=== PATIENT | female | born 1945 | race Caucasian/White ===

== ENCOUNTER → 2018-03-20 10:03 | Outpatient (CLI) | payer MEDICARE, OTHER, SELFPAY ==
--- NOTE | 2018-03-20 | DI.MG.S_ITS ---
BILATERAL DIGITAL SCREENING MAMMOGRAM 3D/2D WITH CAD: 03/20/2018 CLINICAL: Routine screening. Comparison is made to exams dated: 03/19/2017 mammogram, 03/16/2016 mammogram, and 03/07/2015 mammogram - [facility]. The tissue of both breasts is predominantly fatty. Current study was also evaluated with a Computer Aided Detection (CAD) system. No significant masses, calcifications, or other findings are seen in either breast. There has been no significant interval change. IMPRESSION: NEGATIVE There is no mammographic evidence of malignancy. A 1 year screening mammogram is recommended. This exam was interpreted at Station ID: [id number]. NOTE: For mammograms, a report in lay terms will be sent to the patient. Approximately 15% of breast malignancies will not be visualized mammographically. In the management of a palpable breast mass, a negative mammogram must not discourage biopsy of a clinically suspicious lesion. Electronically Signed By: Aline goldsmith/arvin:03/20/2018 12:25:24 letter sent: Normal Exam ACR BI-RADS Category 1: Negative 3341F
== END ==
PROVIDERS: Family Provider Internal Medicine; PCP Internal Medicine; Visit Provider Internal Medicine
DX: Z12.31 Encounter for screening mammogram for malignant neoplasm of breast (principal)
CPT/HCPCS: 77063; 77067

== ENCOUNTER → 2018-07-03 09:13 | Outpatient (CLI) | payer MEDICARE, OTHER, SELFPAY ==
[2018-07-03 10:28] LABS: Alanine Aminotransferase 45 IU/L (9-52); Aspartate Aminotransferase 35 IU/L (14-36); Blood Urea Nitrogen 20 mg/dL (7-17); Calcium 9.3 mg/dL (8.4-10.2); Carbon Dioxide 29 mmol/L (22-32); Chloride 100 mmol/L (98-107); Cholesterol 168 mg/dL (140-199); Estimated Glomerular Filt Rate > 60.0 mL/min (>60); Glucose 110 mg/dL (80-110); HDL Cholesterol 44 mg/dL (40-60); HEMOLYSIS < 15 (0-50); LDL Cholesterol Calculated 96 mg/dL (<100); Potassium 4.5 mmol/L (3.4-5.1); Sodium 138 mmol/L (137-145); Triglycerides 141 mg/dL (35-150)
== END ==
PROVIDERS: PCP Internal Medicine; Visit Provider Internal Medicine
DX: I10 Essential (primary) hypertension (principal); E78.00 Pure hypercholesterolemia, unspecified
CPT/HCPCS: 36415; 80048; 80061; 84450; 84460

== ENCOUNTER → 2019-01-05 11:33 | Outpatient (CLI) | payer MEDICARE, OTHER, SELFPAY ==
[2019-01-05 12:21] LABS: Alanine Aminotransferase 50 IU/L (9-52); Aspartate Aminotransferase 36 IU/L (14-36); Blood Urea Nitrogen 15 mg/dL (7-17); Calcium 9.8 mg/dL (8.4-10.2); Carbon Dioxide 29 mmol/L (22-32); Chloride 102 mmol/L (98-107); Cholesterol 160 mg/dL (140-199); Estimated Glomerular Filt Rate > 60.0 mL/min (>60); Glucose 112 mg/dL (80-110); HDL Cholesterol 45 mg/dL (40-60); HEMOLYSIS < 15 (0-50); LDL Cholesterol Calculated 73 mg/dL (<100); Potassium 4.7 mmol/L (3.4-5.1); Sodium 141 mmol/L (137-145); Triglycerides 211 mg/dL (35-150)
== END ==
PROVIDERS: PCP Internal Medicine; Visit Provider Internal Medicine
DX: E78.00 Pure hypercholesterolemia, unspecified (principal); I10 Essential (primary) hypertension
CPT/HCPCS: 36415; 80048; 80061; 84450; 84460

== ENCOUNTER → 2019-03-25 08:29 | Outpatient (CLI) | payer MEDICARE, OTHER, SELFPAY ==
--- NOTE | 2019-03-25 | DI.MG.S_ITS ---
BILATERAL DIGITAL SCREENING MAMMOGRAM 3D/2D WITH CAD: 03/25/2019 CLINICAL: Routine screening. Comparison is made to exams dated: 03/20/2018 mammogram, 03/19/2017 mammogram, and 03/16/2016 mammogram - [facility]. There are scattered fibroglandular elements in both breasts. Current study was also evaluated with a Computer Aided Detection (CAD) system. No significant masses, calcifications, or other findings are seen in either breast. There has been no significant interval change. IMPRESSION: NEGATIVE There is no mammographic evidence of malignancy. A 1 year screening mammogram is recommended. This exam was interpreted at Station ID: [id number]. NOTE: For mammograms, a report in lay terms will be sent to the patient. Approximately 15% of breast malignancies will not be visualized mammographically. In the management of a palpable breast mass, a negative mammogram must not discourage biopsy of a clinically suspicious lesion. Electronically Signed By: Dae collins/arvin:03/25/2019 09:26:29 letter sent: Normal Exam ACR BI-RADS Category 1: Negative 3341F
== END ==
PROVIDERS: PCP Internal Medicine; Visit Provider Internal Medicine
DX: Z12.31 Encounter for screening mammogram for malignant neoplasm of breast (principal)
CPT/HCPCS: 77063; 77067

== ENCOUNTER → 2019-06-25 09:56 | Outpatient (CLI) | payer MEDICARE, OTHER, SELFPAY ==
[2019-06-25 11:17] LABS: Alanine Aminotransferase 39 IU/L (<35); Aspartate Aminotransferase 35 IU/L (14-36); Blood Urea Nitrogen 18 mg/dL (7-17); Calcium 9.5 mg/dL (8.4-10.2); Carbon Dioxide 27 mmol/L (22-32); Chloride 102 mmol/L (98-107); Cholesterol 173 mg/dL (140-199); Estimated Glomerular Filt Rate > 60.0 mL/min (>60); Glucose 106 mg/dL (80-110); HDL Cholesterol 49 mg/dL (40-60); HEMOLYSIS < 15 (0-50); LDL Cholesterol Calculated 90 mg/dL (<100); Potassium 4.7 mmol/L (3.4-5.1); Sodium 138 mmol/L (137-145); Triglycerides 172 mg/dL (35-150)
== END ==
PROVIDERS: PCP Internal Medicine; Referring Provider Internal Medicine; Visit Provider Internal Medicine
DX: E78.5 Hyperlipidemia, unspecified (principal); I10 Essential (primary) hypertension
CPT/HCPCS: 36415; 80048; 80061; 84450; 84460

== ENCOUNTER → 2020-02-10 10:30 | Outpatient (CLI) | payer MEDICARE, OTHER, SELFPAY ==
[2020-02-10 11:54] LABS: Alanine Aminotransferase 34 IU/L (<35); Albumin 4.2 g/dL (3.5-5.0); Albumin Globulin Ratio 1.4 (1.0-2.8); Alkaline Phosphatase 66 U/L (38-126); Aspartate Aminotransferase 40 IU/L (14-36); Bilirubin Total 0.9 mg/dL (0.2-1.3); Blood Urea Nitrogen 24 mg/dL (7-17); Calcium 9.2 mg/dL (8.4-10.2); Carbon Dioxide 26 mmol/L (22-32); Chloride 104 mmol/L (98-107); Cholesterol 146 mg/dL (140-199); Estimated Glomerular Filt Rate > 60.0 mL/min (>60); Glucose 101 mg/dL (80-110); HDL Cholesterol 37 mg/dL (40-60); HEMOLYSIS 38 (0-50); LDL Cholesterol Calculated 76 mg/dL (<100); Potassium 4.7 mmol/L (3.4-5.1); Sodium 138 mmol/L (137-145); Total Protein 7.2 g/dL (6.3-8.2); Triglycerides 166 mg/dL (35-150)
== END ==
PROVIDERS: PCP Internal Medicine; Referring Provider Internal Medicine; Visit Provider Internal Medicine
DX: I10 Essential (primary) hypertension (principal); E78.5 Hyperlipidemia, unspecified
CPT/HCPCS: 36415; 80053; 80061

== ENCOUNTER → 2020-03-24 16:19 | Outpatient (CLI) | payer MEDICARE, OTHER, SELFPAY | PROVIDERS: PCP Internal Medicine; Visit Provider Physician Assistant | DX: R30.0 Dysuria (principal) | CPT/HCPCS: 87077; 87086; 87186 ==

== ENCOUNTER → 2020-04-15 10:16 | Outpatient (CLI) | payer MEDICARE, OTHER, SELFPAY ==
--- NOTE | 2020-04-15 10:18 | DI.MG.S_ITS ---
BILATERAL DIGITAL SCREENING MAMMOGRAM 3D/2D WITH CAD: 04/15/2020 CLINICAL: Routine screening. Comparison is made to exams dated: 03/25/2019 mammogram, 03/20/2018 mammogram, 03/19/2017 mammogram, and 03/16/2016 mammogram - [facility]. There are scattered fibroglandular elements in both breasts. Current study was also evaluated with a Computer Aided Detection (CAD) system. No significant masses, calcifications, or other findings are seen in either breast. There has been no significant interval change. IMPRESSION: NEGATIVE There is no mammographic evidence of malignancy. A 1 year screening mammogram is recommended. This exam was interpreted at Station ID: [id number]. NOTE: For mammograms, a report in lay terms will be sent to the patient. Approximately 15% of breast malignancies will not be visualized mammographically. In the management of a palpable breast mass, a negative mammogram must not discourage biopsy of a clinically suspicious lesion. Electronically Signed By: Daniel cantu/arvin:04/19/2020 07:53:10 letter sent: Normal Exam ACR BI-RADS Category 1: Negative 3341F
== END ==
PROVIDERS: PCP Internal Medicine; Referring Provider Internal Medicine; Visit Provider Internal Medicine
DX: Z12.31 Encounter for screening mammogram for malignant neoplasm of breast (principal)
CPT/HCPCS: 77063; 77067

== ENCOUNTER → 2020-11-22 10:44 | Outpatient (CLI) | payer MEDICARE, OTHER, SELFPAY | PROVIDERS: PCP Internal Medicine; Referring Provider Internal Medicine; Visit Provider Internal Medicine | DX: M85.851 Other specified disorders of bone density and structure, right thigh (principal); Z78.0 Asymptomatic menopausal state | CPT/HCPCS: 77080 ==

== ENCOUNTER → 2021-02-17 09:59 | Outpatient (CLI) | payer MEDICARE, OTHER, SELFPAY ==
[2021-02-17 11:54] LABS: Alanine Aminotransferase 28 IU/L (<35); Albumin 4.3 g/dL (3.5-5.0); Albumin Globulin Ratio 1.7 (1.0-2.8); Alkaline Phosphatase 48 U/L (38-126); Aspartate Aminotransferase 30 IU/L (14-36); BUN Creatinine Ratio 28.4 (6-22); Bilirubin Total 0.9 mg/dL (0.2-1.3); Blood Urea Nitrogen 19 mg/dL (7-17); Calcium 9.3 mg/dL (8.4-10.2); Carbon Dioxide 33 mmol/L (22-32); Chloride 101 mmol/L (98-107); Cholesterol 143 mg/dL (140-199); Estimated Glomerular Filt Rate > 60.0 mL/min (>60); Globulin 2.6 g/dL (1.7-4.1); Glucose 107 mg/dL (80-110); HDL Cholesterol 51 mg/dL (40-60); HEMOLYSIS < 15 (0-50); LDL Cholesterol Calculated 61 mg/dL (<100); Potassium 4.4 mmol/L (3.4-5.1); Sodium 137 mmol/L (137-145); Total Protein 6.9 g/dL (6.3-8.2); Triglycerides 154 mg/dL (35-150)
== END ==
PROVIDERS: PCP Internal Medicine; Referring Provider Internal Medicine; Visit Provider Internal Medicine
DX: I10 Essential (primary) hypertension (principal); E78.5 Hyperlipidemia, unspecified
CPT/HCPCS: 36415; 80053; 80061

== ENCOUNTER → 2021-04-17 10:29 | Outpatient (CLI) | payer MEDICARE, OTHER, SELFPAY ==
--- NOTE | 2021-04-17 10:33 | DI.MG.S_ITS ---
BILATERAL DIGITAL SCREENING MAMMOGRAM 3D/2D WITH CAD: 04/17/2021 CLINICAL: Routine screening. Comparison is made to exams dated: 04/15/2020 mammogram, 03/25/2019 mammogram, and 03/20/2018 mammogram - [facility]. There are scattered fibroglandular elements in both breasts. Current study was also evaluated with a Computer Aided Detection (CAD) system. No significant masses, calcifications, or other findings are seen in either breast. There has been no significant interval change. IMPRESSION: NEGATIVE There is no mammographic evidence of malignancy. A 1 year screening mammogram is recommended. This exam was interpreted at Station ID: [id number]. NOTE: For mammograms, a report in lay terms will be sent to the patient. Approximately 15% of breast malignancies will not be visualized mammographically. In the management of a palpable breast mass, a negative mammogram must not discourage biopsy of a clinically suspicious lesion. Electronically Signed By: Brice sanches/arvin:04/17/2021 12:10:29 letter sent: Normal Exam ACR BI-RADS Category 1: Negative 3341F
== END ==
PROVIDERS: PCP Internal Medicine; Referring Provider Internal Medicine; Visit Provider Internal Medicine
DX: Z12.31 Encounter for screening mammogram for malignant neoplasm of breast (principal)
CPT/HCPCS: 77063; 77067

== ENCOUNTER → 2022-01-30 10:16 | Outpatient (CLI) | payer MEDICARE, OTHER, SELFPAY | PROVIDERS: PCP Internal Medicine; Referring Provider Internal Medicine; Visit Provider Internal Medicine | DX: M85.852 Other specified disorders of bone density and structure, left thigh (principal); M85.89 Other specified disorders of bone density and structure, multiple sites | CPT/HCPCS: 77080 ==

== ENCOUNTER → 2022-05-03 13:12 | Outpatient (CLI) | payer MEDICARE, OTHER, SELFPAY ==
--- NOTE | 2022-05-03 | DI.MG.S_ITS ---
BILATERAL DIGITAL SCREENING MAMMOGRAM 3D/2D WITH CAD: 05/03/2022 CLINICAL: Routine screening. Comparison is made to exams dated: 04/17/2021 mammogram, 04/15/2020 mammogram, and 03/25/2019 mammogram - [facility]. There are scattered areas of fibroglandular density in both breasts (category b / 25%-50% glandular tissue). Current study was also evaluated with a Computer Aided Detection (CAD) system. No significant masses, calcifications, or other findings are seen in either breast. There has been no significant interval change. IMPRESSION: NEGATIVE There is no mammographic evidence of malignancy. A 1 year screening mammogram is recommended. Based on the Tyrer Cuzick model (a risk assessment model) the patient's lifetime risk is 2.9% and her 10 year risk is 0.0%. According to the ACR, ACS, and NCCN guidelines, an annual breast MRI exam along with mammogram is recommended if the patient's lifetime risk is 20% or greater. This exam was interpreted at Station ID: [id number]. NOTE: For mammograms, a report in lay terms will be sent to the patient. Approximately 15% of breast malignancies will not be visualized mammographically. In the management of a palpable breast mass, a negative mammogram must not discourage biopsy of a clinically suspicious lesion. Electronically Signed By: Segun lind/arvin:05/03/2022 16:43:18 letter sent: Normal Exam ACR BI-RADS Category 1: Negative 3341F
== END ==
PROVIDERS: PCP Family Medicine; Referring Provider Family Medicine; Visit Provider Family Medicine
DX: Z12.31 Encounter for screening mammogram for malignant neoplasm of breast (principal)
CPT/HCPCS: 77063; 77067

== ENCOUNTER → 2022-06-11 09:14 | Outpatient (CLI) | payer MEDICARE, OTHER, SELFPAY ==
[2022-06-11 10:36] LABS: Alanine Aminotransferase 40 IU/L (<35); Albumin 4.2 g/dL (3.5-5.0); Albumin Globulin Ratio 1.3 (1.0-2.8); Alkaline Phosphatase 62 U/L (38-126); Aspartate Aminotransferase 36 IU/L (14-36); BUN Creatinine Ratio 26.8 (6-22); Bilirubin Total 1.3 mg/dL (0.2-1.3); Blood Urea Nitrogen 19 mg/dL (7-17); Calcium 9.1 mg/dL (8.4-10.2); Carbon Dioxide 28 mmol/L (22-32); Chloride 99 mmol/L (98-107); Cholesterol 157 mg/dL (140-199); Estimated Glomerular Filt Rate > 60 mL/min (>60); Globulin 3.2 g/dL (1.7-4.1); Glucose 97 mg/dL (80-110); HDL Cholesterol 55 mg/dL (40-60); HEMOLYSIS 24 (0-50); LDL Cholesterol Calculated 78 mg/dL (<100); Potassium 4.5 mmol/L (3.4-5.1); Sodium 133 mmol/L (137-145); Total Protein 7.4 g/dL (6.3-8.2); Triglycerides 120 mg/dL (35-150)
== END ==
PROVIDERS: PCP Family Medicine; Referring Provider Family Medicine; Visit Provider Family Medicine
DX: I10 Essential (primary) hypertension (principal); Z76.89 Persons encountering health services in other specified circumstances
CPT/HCPCS: 36415; 80053; 80061

== ENCOUNTER → 2022-06-12 08:23 | Outpatient (CLI) | payer MEDICARE, OTHER, SELFPAY ==
[2022-06-12 09:05] LABS: Creatinine Urine Random 118.4 mg/dL
[2022-06-12 09:07] LABS: Microalbumi Creatinin Ratio Ur 7.6 ug/mg CR (<30); Microalbumin Urine Random 0.9 mg/dL (0-1.6)
== END ==
PROVIDERS: PCP Family Medicine; Referring Provider Family Medicine; Visit Provider Family Medicine
DX: I10 Essential (primary) hypertension (principal); Z76.89 Persons encountering health services in other specified circumstances
CPT/HCPCS: 82043; 82570

== ENCOUNTER → 2023-02-08 09:49 | Outpatient (CLI) | payer MEDICARE, OTHER, SELFPAY | PROVIDERS: PCP Family Medicine; Visit Provider Student in an Organized Health Care Education/Training Program | DX: R30.0 Dysuria (principal) | CPT/HCPCS: 87077; 87086; 87186 ==

== ENCOUNTER → 2023-05-04 12:07 | Outpatient (CLI) | payer MEDICARE, OTHER, SELFPAY ==
--- NOTE | 2023-05-04 12:09 | DI.MG.S_ITS ---
BILATERAL DIGITAL SCREENING MAMMOGRAM 3D/2D WITH CAD: 05/04/2023 CLINICAL: Routine screening. Comparison is made to exams dated: 05/03/2022 mammogram, 04/17/2021 mammogram, and 04/15/2020 mammogram - [facility]. There are scattered areas of fibroglandular density in both breasts (category b / 25%-50% glandular tissue). Current study was also evaluated with a Computer Aided Detection (CAD) system. No significant masses, calcifications, or other findings are seen in either breast. There has been no significant interval change. IMPRESSION: NEGATIVE There is no mammographic evidence of malignancy. A 1 year screening mammogram is recommended. Based on the Tyrer Cuzick model (a risk assessment model) the patient's lifetime risk is 2.5% and her 10 year risk is 0.0%. According to the ACR, ACS, and NCCN guidelines, an annual breast MRI exam along with mammogram is recommended if the patient's lifetime risk is 20% or greater. This exam was interpreted at Station ID: [id number]. NOTE: For mammograms, a report in lay terms will be sent to the patient. Approximately 15% of breast malignancies will not be visualized mammographically. In the management of a palpable breast mass, a negative mammogram must not discourage biopsy of a clinically suspicious lesion. Electronically Signed By: Aline goldsmith/arvin:05/06/2023 12:51:13 letter sent: Normal Exam ACR BI-RADS Category 1: Negative 3341F
== END ==
PROVIDERS: PCP Family Medicine; Referring Provider Family Medicine; Visit Provider Family Medicine
DX: Z12.31 Encounter for screening mammogram for malignant neoplasm of breast (principal)
CPT/HCPCS: 77063; 77067

== ENCOUNTER → 2023-06-03 09:35 | Outpatient (CLI) | payer MEDICARE, OTHER, SELFPAY ==
[2023-06-03 10:42] LABS: Hematocrit 40.7 % (36-46); Hemoglobin 13.7 g/dL (12.0-16.0); Mean Corpuscular HGB Conc 33.6 % (30-36); Mean Corpuscular Hemoglobin 30.7 PG (26-34); Mean Corpuscular Volume 91.5 fL (80-100); Platelet Count 249 X10^3/uL (150-400); Red Blood Cell Count 4.45 X10^6/uL (4.0-5.2); Red Cell Distribution Width 13.2 % (11.6-14.8)
[2023-06-03 11:04] LABS: Alanine Aminotransferase 31 IU/L (<35); Albumin 4.1 g/dL (3.5-5.0); Albumin Globulin Ratio 1.5 (1.0-2.8); Alkaline Phosphatase 56 U/L (38-126); Aspartate Aminotransferase 30 IU/L (14-36); BUN Creatinine Ratio 22.4 (6-22); Bilirubin Total 0.8 mg/dL (0.2-1.3); Blood Urea Nitrogen 17 mg/dL (7-17); Calcium 10.1 mg/dL (8.4-10.2); Carbon Dioxide 30 mmol/L (22-32); Chloride 99 mmol/L (98-107); Cholesterol 159 mg/dL (140-199); Estimated Glomerular Filt Rate > 60 mL/min (>60); Globulin 2.8 g/dL (1.7-4.1); Glucose 104 mg/dL (80-110); HDL Cholesterol 58 mg/dL (40-60); HEMOLYSIS < 15 (0-50); LDL Cholesterol Calculated 85 mg/dL (<100); Potassium 4.3 mmol/L (3.4-5.1); Sodium 134 mmol/L (137-145); Total Protein 6.9 g/dL (6.3-8.2); Triglycerides 79 mg/dL (35-150)
[2023-06-03 11:08] LABS: High Sensitivity CRP - Cardiac 0.4 mg/L (1.0-3.0)
[2023-06-03 11:12] LABS: Hemoglobin A1C% w Est Avg Glu 5.8 % (4.0-6.0)
[2023-06-03 11:45] LABS: Creatinine Urine Random 113.3 mg/dL
[2023-06-03 11:46] LABS: Protein (Total) Urine Random < 5 mg/dL (0-12); Protein Creatinine Ratio Urine 0.04 GRAM/24H
== END ==
LOC: LAB 09:36
PROVIDERS: PCP Family Medicine; Referring Provider Family Medicine; Visit Provider Family Medicine
DX: I10 Essential (primary) hypertension (principal); F41.9 Anxiety disorder, unspecified; E78.5 Hyperlipidemia, unspecified
CPT/HCPCS: 80053; 80061; 82570; 83036; 84156; 85027; 86140

== ENCOUNTER → 2023-12-17 08:47 | Outpatient (CLI) | payer MEDICARE, OTHER, SELFPAY ==
[2023-12-17 09:56] LABS: Alanine Aminotransferase 39 IU/L (<35); Albumin 4.3 g/dL (3.5-5.0); Albumin Globulin Ratio 1.8 (1.0-2.8); Alkaline Phosphatase 66 U/L (38-126); Aspartate Aminotransferase 32 IU/L (14-36); BUN Creatinine Ratio 23.5 (6-22); Bilirubin Total 1.1 mg/dL (0.2-1.3); Blood Urea Nitrogen 19 mg/dL (7-17); Calcium 9.3 mg/dL (8.4-10.2); Carbon Dioxide 27 mmol/L (22-32); Chloride 100 mmol/L (98-107); Cholesterol 151 mg/dL (140-199); Estimated Glomerular Filt Rate > 60 mL/min (>60); Globulin 2.4 g/dL (1.7-4.1); Glucose 116 mg/dL (80-110); HDL Cholesterol 62 mg/dL (40-60); HEMOLYSIS < 15 (0-50); LDL Cholesterol Calculated 67 mg/dL (<100); Potassium 4.2 mmol/L (3.4-5.1); Sodium 134 mmol/L (137-145); Total Protein 6.7 g/dL (6.3-8.2); Triglycerides 112 mg/dL (35-150)
[2023-12-17 10:02] LABS: High Sensitivity CRP - Cardiac 0.4 mg/L (1.0-3.0)
== END ==
PROVIDERS: PCP Family Medicine; Referring Provider Family Medicine; Visit Provider Family Medicine
DX: E78.5 Hyperlipidemia, unspecified (principal); I10 Essential (primary) hypertension
CPT/HCPCS: 36415; 80053; 80061; 86140

== ENCOUNTER → 2024-06-08 12:07 | Outpatient (CLI) | payer MEDICARE, OTHER, SELFPAY ==
--- NOTE | 2024-06-08 12:09 | DI.MG.S_ITS ---
BILATERAL DIGITAL SCREENING MAMMOGRAM 3D/2D WITH CAD: 06/08/2024 CLINICAL: Routine screening. Comparison is made to exams dated: 05/04/2023 mammogram, 05/03/2022 mammogram, 04/17/2021 mammogram, 04/15/2020 mammogram, and 03/25/2019 mammogram - [facility]. There are scattered areas of fibroglandular density (category b / 25%-50% glandular tissue). Current study was also evaluated with a Computer Aided Detection (CAD) system. No significant masses, calcifications, or other findings are seen in either breast. There has been no significant interval change. IMPRESSION: NEGATIVE There is no mammographic evidence of malignancy. A 1 year screening mammogram is recommended. Based on the Tyrer Cuzick model (a risk assessment model) the patient's lifetime risk is 2.2% and her 10 year risk is 0.0%. According to the ACR, ACS, and NCCN guidelines, an annual breast MRI exam along with mammogram is recommended if the patient's lifetime risk is 20% or greater. This exam was interpreted at Station ID: [id number]. NOTE: For mammograms, a report in lay terms will be sent to the patient. Approximately 15% of breast malignancies will not be visualized mammographically. In the management of a palpable breast mass, a negative mammogram must not discourage biopsy of a clinically suspicious lesion. Electronically Signed By: Janet Winters M.D., Ph.D. nnamdi/arvin:06/08/2024 13:11:25 letter sent: Normal Exam ACR BI-RADS Category 1: Negative
== END ==
PROVIDERS: PCP Family Medicine; Referring Provider Family Medicine; Visit Provider Family Medicine
DX: Z12.31 Encounter for screening mammogram for malignant neoplasm of breast (principal)
CPT/HCPCS: 77063; 77067

== ENCOUNTER → 2024-06-12 08:33 | Outpatient (CLI) | payer MEDICARE, OTHER, SELFPAY ==
[2024-06-12 09:04] LABS: Add Manual Diff / Slide Review NO; Basophils Absolute Auto 0 /uL (0-100); Basophils Percent Auto 0.5 % (0-2); Eosinophils Absolute Auto 100 /uL (0-450); Eosinophils Percent Auto 1.2 % (2-4); Hematocrit 42.4 % (36-46); Lymphocytes Absolute Auto 1200 /uL (1100-4500); Lymphocytes Percent Auto 20.1 % (25-40); Mean Corpuscular Hemoglobin 30.3 PG (26-34); Mean Corpuscular Volume 91.7 fL (80-100); Monocytes Absolute Auto 500 /uL (0-900); Monocytes Percent Auto 8.3 % (3-14); Neutrophils Absolute Auto 4200 /uL (1500-7000); Neutrophils Percent Auto 69.9 % (50-75); Platelet Count 218 X10^3/uL (150-400); Red Blood Cell Count 4.62 X10^6/uL (4.0-5.2); Red Cell Distribution Width 13.3 % (11.6-14.8)
[2024-06-12 09:15] LABS: Hemoglobin A1C% w Est Avg Glu 5.7 % (4.0-6.0)
[2024-06-12 09:29] LABS: Alanine Aminotransferase 40 IU/L (<35); Albumin Globulin Ratio 1.7 (1.0-2.8); Alkaline Phosphatase 62 U/L (38-126); Aspartate Aminotransferase 40 IU/L (14-36); BUN Creatinine Ratio 29.5 (6-22); Bilirubin Total 0.7 mg/dL (0.2-1.3); Blood Urea Nitrogen 23 mg/dL (7-17); Calcium 9.3 mg/dL (8.4-10.2); Carbon Dioxide 28 mmol/L (22-32); Chloride 103 mmol/L (98-107); Cholesterol 154 mg/dL (140-199); Estimated Glomerular Filt Rate > 60 mL/min (>60); Globulin 2.3 g/dL (1.7-4.1); Glucose 110 mg/dL (80-110); HDL Cholesterol 58 mg/dL (40-60); HEMOLYSIS < 15 (0-50); LDL Cholesterol Calculated 74 mg/dL (<100); Potassium 4.3 mmol/L (3.4-5.1); Sodium 135 mmol/L (137-145); Total Protein 6.3 g/dL (6.3-8.2); Triglycerides 108 mg/dL (35-150)
[2024-06-13 04:08] LABS: CRP, High Sensitivity 0.35 mg/L (0.00-3.00)
== END ==
PROVIDERS: PCP Family Medicine; Referring Provider Family Medicine; Visit Provider Family Medicine
DX: Z00.00 Encounter for general adult medical examination without abnormal findings (principal); E78.5 Hyperlipidemia, unspecified; R73.03 Prediabetes; I10 Essential (primary) hypertension; R73.9 Hyperglycemia, unspecified
CPT/HCPCS: 36415; 80053; 80061; 83036; 85025; 86140

== ENCOUNTER 2024-07-07 21:23 | Emergency (ER) | payer MEDICARE, OTHER, SELFPAY ==
[2024-07-07] VITALS (9 sets, daily range): BP systolic 121–154; BP diastolic 68–78; PULSE 63–77; RESP 18–23; TEMP 36.8; O2SAT 96–99; BMI 26.4
--- NOTE | 2024-07-07 21:30 | DI.RAD.S_ITS ---
PROCEDURE: XR CHEST 1V INDICATIONS: altered mental status TECHNIQUE: One view of the chest was acquired. COMPARISON: None. FINDINGS: Surgical changes and devices: None. Lungs and pleura: Lungs are clear. No pleural effusions or pneumothorax. Mediastinum: Mediastinal contours appear normal. Heart size is normal. Bones and chest wall: No suspicious bony lesions. Overlying soft tissues appear unremarkable. IMPRESSION: No acute cardiothoracic process. Dictated by: Henrry David M.D. on 07/07/2024 at 22:40 Approved by: Henrry David M.D. on 07/07/2024 at 22:40
--- NOTE | 2024-07-07 21:30 | EKG_ITS ---
[place] [id number] [address] [place] [id number] Test Date: 2024-07-07 Pat Name: Tad Dao Department: 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
--- NOTE | 2024-07-07 21:30 | DI.CT.S_ITS ---
PROCEDURE: CT HEAD/BRAIN WO CON INDICATIONS: AMS- confusion TECHNIQUE: Noncontrast 4.5 mm thick angled axial sections acquired from the foramen magnum to the vertex, with coronal and sagittal reformats. For radiation dose reduction, the following was used: automated exposure control, adjustment of mA and/or kV according to patient size. COMPARISON: None. FINDINGS: Image quality: Diagnostic. CSF spaces: Basal cisterns are patent. No extra-axial fluid collections. The ventricles are symmetric in size and shape. Brain: No intracranial bleeds or masses. There is cerebral volume loss for age, with resultant ventricular and sulcal prominence. There are periventricular and deep white matter chronic small vessel ischemic changes. There is intracranial internal carotid artery atherosclerosis. Skull and face: Calvarium and visualized facial bones appear intact, without suspicious lesions. Sinuses: Visualized sinuses and mastoids are clear. IMPRESSION: No acute intracranial abnormality. Dictated by: Henrry David M.D. on 07/07/2024 at 22:42 Approved by: Henrry David M.D. on 07/07/2024 at 22:43
[2024-07-07 21:45] LABS: Add Manual Diff / Slide Review NO; Basophils Absolute Auto 100 /uL (0-100); Basophils Percent Auto 0.7 % (0-2); Eosinophils Absolute Auto 100 /uL (0-450); Eosinophils Percent Auto 1.6 % (2-4); Hematocrit 41.8 % (36-46); Lymphocytes Absolute Auto 1900 /uL (1100-4500); Lymphocytes Percent Auto 25.3 % (25-40); Mean Corpuscular HGB Conc 33.5 % (30-36); Mean Corpuscular Hemoglobin 30.8 PG (26-34); Mean Corpuscular Volume 91.9 fL (80-100); Monocytes Absolute Auto 700 /uL (0-900); Monocytes Percent Auto 9.5 % (3-14); Neutrophils Absolute Auto 4800 /uL (1500-7000); Neutrophils Percent Auto 62.9 % (50-75); Platelet Count 204 X10^3/uL (150-400); Red Blood Cell Count 4.54 X10^6/uL (4.0-5.2); Red Cell Distribution Width 13.1 % (11.6-14.8); White Blood Cell Count 7.6 X10^3/uL (4.5-11.0)
[2024-07-07 21:55] LABS: Alanine Aminotransferase 43 IU/L (<35); Albumin 4.4 g/dL (3.5-5.0); Albumin Globulin Ratio 1.6 (1.0-2.8); Alkaline Phosphatase 63 U/L (38-126); Aspartate Aminotransferase 41 IU/L (14-36); BUN Creatinine Ratio 30.7 (6-22); Bilirubin Total 0.7 mg/dL (0.2-1.3); Blood Urea Nitrogen 31 mg/dL (7-17); Calcium 9.6 mg/dL (8.4-10.2); Carbon Dioxide 27 mmol/L (22-32); Chloride 101 mmol/L (98-107); Estimated Glomerular Filt Rate 57 mL/min (>60); Globulin 2.7 g/dL (1.7-4.1); Glucose 123 mg/dL (80-110); HEMOLYSIS < 15 (0-50); Potassium 4.3 mmol/L (3.4-5.1); Sodium 134 mmol/L (137-145); Total Protein 7.1 g/dL (6.3-8.2)
[2024-07-07 22:23] LABS: Ammonia (NH3) < 9 umol/L (9-30)
[2024-07-07 22:54] LABS: UR Morphine/Opiate cutoff 300 Negative (Negative); Ur Creatinine Normal (Normal); Ur Specific Gravity Normal (Normal); Urine Amphetamines Negative (Negative); Urine Barbiturates Negative (Negative); Urine Benzodiazepines Negative (Negative); Urine Cocaine Negative (Negative); Urine MDMA Negative (Negative); Urine Methadone Negative (Negative); Urine Methamphetamines Negative (Negative); Urine Oxycodone Negative (Negative); Urine Phencyclidine Negative (Negative); Urine Tetrahydrocannabinol Negative (Negative); Urine Tricyclic Antidepressant Negative (Negative); Urine pH Normal (Normal)
[2024-07-07 23:27] LABS: Creatine Kinase 184 U/L (30-135)
[2024-07-07 23:27] LABS: Bacteria Urine None Seen; RBC Urine None Seen (0-5/HPF); Squamous Epithelial Cell Urine 1-5 /HPF (0-5/HPF); Urine Volume 10mL (spun); WBC Urine 1-5/HPF (0-5/HPF)
[2024-07-07 23:40] LABS: Troponin I < 0.012 ng/mL (0.01-0.034)
[2024-07-08 00:02] VITALS: PULSE 67; RESP 18; O2SAT 97
[2024-07-08 00:07] LABS: Troponin I < 0.012 ng/mL (0.01-0.034)
[2024-07-08 00:30] VITALS: PULSE 75; RESP 20; O2SAT 96
[2024-07-08 01:00] VITALS: BP 148/71; PULSE 72; RESP 24; O2SAT 98
[2024-07-08 01:30] VITALS: BP 142/90; PULSE 74; RESP 22
--- NOTE | 2024-07-08 01:42 | ED_ITS ---
HPI - General Adult General Chief complaint: Altered Mental Status Stated complaint: GLF Time Seen by Provider: 07/08/24 00:44 Source: family and EMS Mode of arrival: EMS History of Present Illness HPI narrative: 78-year-old female was ambulating at her home in dark room when she lost her balance and fell, struck left forearm on something sustaining a small linear laceration, seemed confused after the fall to family members, here for evaluation. No blood thinners taken. No preceding chest pain or shortness of breath. She believes that she fell because it was dark room she had not turned on the light. No focal weakness to face arm or leg. No focal numbness to face arm or leg. She feels recovered, family members feel like she has recovered. Related Data Previous Rx's Medication Instructions Recorded diphenoxylate-atropine 2.5 1 tab PO PRN PRN #18 tabs 09/03/17 mg-0.025 mg tablet atorvastatin 20 mg tablet 20 mg PO ONCE PM #90 tabs 06/16/24 diclofenac sodium 50 mg 50 mg PO QDAY #90 tabs 06/16/24 tablet,delayed release lisinopril 20 mg tablet 20 mg PO DAILY #90 tabs 06/16/24 trazodone 50 mg tablet 50 mg PO BEDTIME PRN insomnia #90 06/16/24 tabs venlafaxine 75 mg capsule,extended 75 mg PO ONCE PM #90 caps 06/16/24 release 24 hr Allergies Allergy/AdvReac Type Severity Reaction Status Date / Time No Known Drug Allergies Allergy Verified 06/16/24 13:31 Patient History Medical History (Updated 07/08/24 @ 02:01 by Stephan Stern MD) Dermatitis of face Skin tags, multiple acquired Glaucoma (~1994) LLQ abdominal tenderness Skin cancer (~2004) Osteoarthritis (~1999) Anxiety (~2011) Osteopenia (~2016) Measles Chicken pox Hypertension (~1999) Surgical History Anesthesia History of eyelid surgery (~1999) History of tonsillectomy (~1954) Social History Smoking Status: Never smoker alcohol intake: former (Quit 2020) substance use type: does not use Smoking Status: Never smoker Exam Narrative Exam Narrative: GENERAL: Well-developed patient, in mild distress. HEAD: Atraumatic. Normocephalic. EYES: Pupils equal round and reactive. Extraocular motions intact. No scleral icterus. No injection or drainage. ENT: Nose without bleeding, purulent drainage. Throat without erythema, tonsillar hypertrophy or exudate. Airway patent. NECK: Trachea midline. Non tender CARDIOVASCULAR: Regular rate and rhythm without murmurs, gallops, or rubs. RESPIRATORY: Clear to auscultation. Breath sounds equal bilaterally. No wheezes, rales, or rhonchi. GASTROINTESTINAL: Abdomen soft, non-tender, nondistended. EXTREMITIES: No edema or joint tenderness. BACK: Nontender without deformity or crepitance. No flank tenderness. NEURO: AOx3. Motor 5/5 bilateral upper extremities. Motor 5/5 bilateral lower extremities. [id number] testing normal both sides. SKIN: No rash or erythema of visible areas Initial Vital Signs Initial Vital Signs: Vital Signs Blood Pressure 143/78 H 07/07/24 21:30 Course Orders Ordered: Discontinued Medications Bacitracin (Bacitracin Oint 0.9 Gm Pckt) 1 applic TOP NOW ONE Stop: 07/08/24 01:53 Last Admin: 07/08/24 02:00 Dose: 1 applic Documented By: NIDHI Vital Signs Vital signs: Vital Signs - 8 hr 07/07/24 21:30 07/07/24 21:31 07/07/24 21:32 Temperature 98.3 F Pulse Rate 72 77 Respiratory Rate 19 18 Blood Pressure 143/78 H 143/78 H Pulse Oximetry 96 96 Oxygen Delivery Method Room Air 07/07/24 21:49 07/07/24 21:49 07/07/24 22:00 Temperature Pulse Rate 71 71 Respiratory Rate 20 22 Blood Pressure 123/68 Pulse Oximetry 96 97 Oxygen Delivery Method 07/07/24 22:00 07/07/24 22:30 07/07/24 22:30 Temperature Pulse Rate 63 Respiratory Rate 23 Blood Pressure 121/69 153/73 H Pulse Oximetry 98 Oxygen Delivery Method 07/07/24 22:45 07/07/24 22:45 07/07/24 23:00 Temperature Pulse Rate 66 Respiratory Rate 18 Blood Pressure 154/75 H 136/68 Pulse Oximetry 99 Oxygen Delivery Method 07/07/24 23:00 07/07/24 23:30 07/07/24 23:30 Temperature Pulse Rate 65 69 Respiratory Rate 20 23 Blood Pressure 150/77 H Pulse Oximetry 99 98 Oxygen Delivery Method 07/08/24 00:02 07/08/24 00:30 07/08/24 01:00 Temperature Pulse Rate 67 75 Respiratory Rate 18 20 Blood Pressure 148/71 H Pulse Oximetry 97 96 Oxygen Delivery Method 07/08/24 01:00 07/08/24 01:30 07/08/24 01:30 Temperature Pulse Rate 72 74 Respiratory Rate 24 22 Blood Pressure 142/90 H Pulse Oximetry 98 Oxygen Delivery Method Medical Decision Making Lab Data Lab results reviewed: Yes I reviewed the patient's lab results. Lab results narrative: White blood cell count 7600, hemoglobin 14, platelets adequate. Basic metabolic panel unremarkable. Slight transaminase elevation with normal T bili and alkaline phosphatase. CPK 184. Troponin negative/unmeasurable. Urinalysis negative. Urine drug screen negative. Ammonia level normal. 07/07/24 21:31 07/07/24 21:31 Labs: Lab Results 07/07/24 07/07/24 07/07/24 Range/Units 21:31 22:00 22:43 WBC 7.6 (4.5-11.0) X10^3/uL RBC 4.54 (4.0-5.2) X10^6/uL Hgb 14.0 (12.0-16.0) g/dL Hct 41.8 (36-46) % MCV 91.9 (80-100) fL MCH 30.8 (26-34) PG MCHC 33.5 (30-36) % RDW 13.1 (11.6-14.8) % Plt Count 204 (150-400) X10^3/uL Neut % (Auto) 62.9 (50-75) % Lymph % (Auto) 25.3 (25-40) % Union % (Auto) 9.5 (3-14) % Eos % (Auto) 1.6 L (2-4) % Baso % (Auto) 0.7 (0-2) % Neut # (Auto) 4800 (5483-8248) /uL Lymph # (Auto) 1900 (4802-5521) /uL Union # (Auto) 700 (0-900) /uL Eos # (Auto) 100 (0-450) /uL Baso # (Auto) 100 (0-100) /uL Sodium 134 L (137-145) mmol/L Potassium 4.3 (3.4-5.1) mmol/L Chloride 101 (98-107) mmol/L Carbon Dioxide 27 (22-32) mmol/L BUN 31 H (7-17) mg/dL Creatinine 1.01 (0.52-1.04) mg/dL Estimated GFR 57 L (>60) mL/min BUN/Creatinine Ratio 30.7 H (6-22) Glucose 123 H (80-110) mg/dL Calcium 9.6 (8.4-10.2) mg/dL Total Bilirubin 0.7 (0.2-1.3) mg/dL AST 41 H (14-36) IU/L ALT 43 H (<35) IU/L Alkaline Phosphatase 63 (38-126) U/L Ammonia < 9 L (9-30) umol/L Total Creatine Kinase 184 H (30-135) U/L Troponin I < 0.012 (0.01-0.034) ng/mL Total Protein 7.1 (6.3-8.2) g/dL Albumin 4.4 (3.5-5.0) g/dL Globulin 2.7 (1.7-4.1) g/dL Albumin/Globulin Ratio 1.6 (1.0-2.8) Urine RBC None seen (0-5/HPF) Urine WBC 1-5/hpf (0-5/HPF) Ur Squamous Epith Cells 1-5 /hpf (0-5/HPF) Urine Bacteria None seen (None) Vol Urine Centrifuged 10ml (spun) U Opiates 300ng/mL cut Negative (Negative) Ur Oxycodone Screen Negative (Negative) Urine Methadone Screen Negative (Negative) Ur Barbiturates Screen Negative (Negative) U Tricyclic Antidepress Negative (Negative) Ur Phencyclidine Scrn Negative (Negative) Ur Amphetamines Screen Negative (Negative) U Methamphetamines Scrn Negative (Negative) Ur MDMA Scrn (Ecstasy) Negative (Negative) U Benzodiazepines Scrn Negative (Negative) Urine Cocaine Screen Negative (Negative) U Marijuana (THC) Screen Negative (Negative) Urine pH Normal (Normal) Urine Specific [place] Normal (Normal) Ur Creatinine Normal (Normal) 07/07/24 Range/Units 23:35 WBC (4.5-11.0) X10^3/uL RBC (4.0-5.2) X10^6/uL Hgb (12.0-16.0) g/dL Hct (36-46) % MCV (80-100) fL MCH (26-34) PG MCHC (30-36) % RDW (11.6-14.8) % Plt Count (150-400) X10^3/uL Neut % (Auto) (50-75) % Lymph % (Auto) (25-40) % Union % (Auto) (3-14) % Eos % (Auto) (2-4) % Baso % (Auto) (0-2) % Neut # (Auto) (6642-4172) /uL Lymph # (Auto) (7855-8735) /uL Union # (Auto) (0-900) /uL Eos # (Auto) (0-450) /uL Baso # (Auto) (0-100) /uL Sodium (137-145) mmol/L Potassium (3.4-5.1) mmol/L Chloride (98-107) mmol/L Carbon Dioxide (22-32) mmol/L BUN (7-17) mg/dL Creatinine (0.52-1.04) mg/dL Estimated GFR (>60) mL/min BUN/Creatinine Ratio (6-22) Glucose (80-110) mg/dL Calcium (8.4-10.2) mg/dL Total Bilirubin (0.2-1.3) mg/dL AST (14-36) IU/L ALT (<35) IU/L Alkaline Phosphatase (38-126) U/L Ammonia (9-30) umol/L Total Creatine Kinase (30-135) U/L Troponin I < 0.012 (0.01-0.034) ng/mL Total Protein (6.3-8.2) g/dL Albumin (3.5-5.0) g/dL Globulin (1.7-4.1) g/dL Albumin/Globulin Ratio (1.0-2.8) Urine RBC (0-5/HPF) Urine WBC (0-5/HPF) Ur Squamous Epith Cells (0-5/HPF) Urine Bacteria (None) Vol Urine Centrifuged U Opiates 300ng/mL cut (Negative) Ur Oxycodone Screen (Negative) Urine Methadone Screen (Negative) Ur Barbiturates Screen (Negative) U Tricyclic Antidepress (Negative) Ur Phencyclidine Scrn (Negative) Ur Amphetamines Screen (Negative) U Methamphetamines Scrn (Negative) Ur MDMA Scrn (Ecstasy) (Negative) U Benzodiazepines Scrn (Negative) Urine Cocaine Screen (Negative) U Marijuana (THC) Screen (Negative) Urine pH (Normal) Urine Specific Newport (Normal) Ur Creatinine (Normal) Point of Care Testing Glucose POC 122 Urine Dip Bedside Urine Glucose Negative Bedside Urine Bilirubin - Negative Bedside Urine Ketone - Negative Urine Specific [place] 1.015 Bedside Urine Occult Blood - Negative Bedside Urine pH 6.0 Bedside Urine Protein - Negative Bedside Urine Urobilinogen - Negative Bedside Urine Nitrite - Negative Bedside Urine Leukocytes +/- 15 Esterase Point of care testing: Point of Care Testing Glucose POC 122 Urine Dip Bedside Urine Glucose Negative Bedside Urine Bilirubin - Negative Bedside Urine Ketone - Negative Urine Specific [place] 1.015 Bedside Urine Occult Blood - Negative Bedside Urine pH 6.0 Bedside Urine Protein - Negative Bedside Urine Urobilinogen - Negative Bedside Urine Nitrite - Negative Bedside Urine Leukocytes +/- 15 Esterase Imaging Data Chest x-ray: Radiologist's Impression: [address] [address] XRay Report Signed Patient: Tad Dao MR#: [id number] : 1945 Acct:[id number] Age/Sex: 78 / F Date of Service: 07/07/24 Loc: ED Accession Number: [id number] Procedure: XR chest 1V Ordering Provider: Stephan Stern MD PROCEDURE: XR CHEST 1V INDICATIONS: altered mental status TECHNIQUE: One view of the chest was acquired. COMPARISON: None. FINDINGS: Surgical changes and devices: None. Lungs and pleura: Lungs are clear. No pleural effusions or pneumothorax. Mediastinum: Mediastinal contours appear normal. Heart size is normal. Bones and chest wall: No suspicious bony lesions. Overlying soft tissues appear unremarkable. IMPRESSION: No acute cardiothoracic process. Dictated by: Henrry David M.D. on 07/07/2024 at 22:40 Approved by: Henrry David M.D. on 07/07/2024 at 22:40 CT scan - head: Radiologist's Impression: [address] [address] [address] Scan Report Signed Patient: Tad Dao MR#: [id number] : 1945 Acct:[id number] Age/Sex: 78 / F Date of Service: 07/07/24 Loc: ED Accession Number: [id number] Procedure: CT head/brain wo con Ordering Provider: Stephan Stern MD PROCEDURE: CT HEAD/BRAIN WO CON INDICATIONS: AMS- confusion TECHNIQUE: Noncontrast 4.5 mm thick angled axial sections acquired from the foramen magnum to the vertex, with coronal and sagittal reformats. For radiation dose reduction, the following was used: automated exposure control, adjustment of mA and/or kV according to patient size. COMPARISON: None. FINDINGS: Image quality: Diagnostic. CSF spaces: Basal cisterns are patent. No extra-axial fluid collections. The ventricles are symmetric in size and shape. Brain: No intracranial bleeds or masses. There is cerebral volume loss for age, with resultant ventricular and sulcal prominence. There are periventricular and deep white matter chronic small vessel ischemic changes. There is intracranial internal carotid artery atherosclerosis. Skull and face: Calvarium and visualized facial bones appear intact, without suspicious lesions. Sinuses: Visualized sinuses and mastoids are clear. IMPRESSION: No acute intracranial abnormality. Dictated by: Henrry David M.D. on 07/07/2024 at 22:42 Approved by: Henrry David M.D. on 07/07/2024 at 22:43 ECG Data Attestation: I personally reviewed and interpreted this ECG as follows: Interpretation: Normal sinus rhythm with rate of 72, no obvious ST segment elevation or depression changes. T-wave inversion lead 3, flat T-waves lead AVF, upright in lead 2. VT 160, QRS 82, QTC 427. MDM Narrative Medical decision making narrative: 78-year-old female had ground level fall in dark room when she had not turned on the light but attempted ambulation, fell, linear laceration to the left forearm, did not believe that she struck her head, no headache, but seemed confused after the fall to family. No blood thinner medications. CT head ordered from triage, EKG and labs pending. EKG was sinus rhythm, no obvious ischemic changes. Troponin negative. Other labs unremarkable. Patient feels well, family members at the bedside feel like she is well. Unclear if she struck her head, post fall confusion seems resolved. Could be concussion or some other resolved state. They would like to go home, no further workup for now. Able to tolerate oral fluids, ambulated. Local wound care cleansing to left linear forearm nonsuturable abrasion, topical antibiotics ointment, tetanus up-to-date Patient would like to go home. at bedside agrees. Home with family. Return precautions discussed. Discharge Plan Departure Patient Disposition: Home Clinical Impression: Fall from ground level, Confusion, Abrasion forearm Activity Restrictions/Additional Instructions: Ms. Dao, You had a ground level fall in darkened room when the light was not on, did not obviously strike her head but seemed confused to family members after the fall. CT scan of the head/brain was done and was normal. EKG and blood testing unremarkable. You had small linear laceration to the left forearm that did not require sutures, local wound care cleansing and topical antibiotic. Your tetanus was reportedly up-to-date. Consider use of topical antibiotic twice daily over the abrasion on your left forearm, wound check if swelling or redness or concerns for infection. You seemed to have resolution of your confusion after the fall, unclear if you might have had a concussive injury or some other reason for the transient resolved confusion. If you had concussion then usual recommendations would be to have physical rest and cognitive rest for the next couple of days, and close follow up with your regular doctor to reassess for residual concerns. It is possible your confusion was not related to injury, and not concussive. It is possible transient confusion might have represented stroke or transient ischemic attack, though this seems a little less likely. Further testing could be performed such as MRI brain testing, angiogram of the vessels of the neck in the brain, echocardiogram of the heart. You felt better and wanted to go home, did not want further evaluation here for now, consider further testing as an outpatient. Consider recheck with your regular doctor in the next couple of days. Return to this/nearest emergency department for any change worsening symptoms or any concerns prior. Thank you for allowing our team to evaluate you today. Prescriptions: No Action diphenoxylate-atropine 2.5 MG/0.025 MG tablet 1 tab PO PRN PRNQty: 18 0RF Hold Instructions: pt doesn't recall atorvastatin 20 mg tablet 20 mg PO ONCE PM Qty: 90 3RF lisinopril 20 mg tablet 20 mg PO DAILY Qty: 90 0RF diclofenac sodium 50 mg tablet,delayed release (DR/EC) 50 mg PO QDAY Qty: 90 1RF trazodone 50 mg tablet 50 mg PO BEDTIME PRN (Reason: insomnia) Qty: 90 1RF venlafaxine 75 mg capsule,extended release 24hr 75 mg PO ONCE PM Qty: 90 0RF Referrals: Halie Cannon DO [Primary Care Provider] - Stand Alone Forms: Patient Portal/API/Survey
[2024-07-08] MEDS: BACITRACIN OINT 0.9 GM PCKT 1 APPLIC TOP (02:00)
== END 2024-07-08 02:11 | disposition home or self-care (01) ==
PROVIDERS: Emergency Provider Emergency Medicine; PCP Family Medicine
DX: S50.812A Abrasion of left forearm, initial encounter (principal); R41.0 Disorientation, unspecified; I10 Essential (primary) hypertension; W18.00XA Striking against unspecified object with subsequent fall, initial encounter
CPT/HCPCS: 36415; 70450; 71045; 80053; 80305; 81003; 81015; 82140; 82550; 82962; 84484; 85025; 87077; 87086; 87186; 93005; 93010; 99284

== ENCOUNTER 2024-11-04 11:03 | Emergency (ER) | payer MEDICARE, OTHER, SELFPAY ==
[2024-11-04] VITALS (23 sets, daily range): BP systolic 145–205; BP diastolic 65–94; PULSE 70–93; RESP 12–25; TEMP 36.4; O2SAT 94–100; BMI 23.4
--- NOTE | 2024-11-04 11:25 | DI.CT.S_ITS ---
PROCEDURE: CT HEAD/BRAIN WO CON INDICATIONS: fall/trauma TECHNIQUE: Noncontrast 4.5 mm thick angled axial sections acquired from the foramen magnum to the vertex, with coronal and sagittal reformats. For radiation dose reduction, the following was used: automated exposure control, adjustment of mA and/or kV according to patient size. COMPARISON: [facility], CT, CT HEAD/BRAIN WO CON, 07/07/2024, 21:35. FINDINGS: Image quality: Diagnostic. CSF spaces: Basal cisterns are patent. No extra-axial fluid collections. The ventricles are symmetric in size and shape. Brain: No acute intracranial hemorrhage or mass effect. There is cerebral volume loss, with resultant ventricular and sulcal prominence. There are periventricular and deep white matter chronic small vessel ischemic changes. There is intracranial internal carotid artery atherosclerosis. Skull and face: Calvarium and visualized facial bones appear intact, without suspicious lesions. Sinuses: Visualized sinuses and mastoids are clear. IMPRESSION: No acute intracranial pathology. Approved by: Segun Tran M.D. on 11/04/2024 at 12:05
--- NOTE | 2024-11-04 11:25 | DI.RAD.S_ITS ---
PROCEDURE: XR CHEST 1V INDICATIONS: chest pain TECHNIQUE: One view of the chest was acquired. COMPARISON: [facility], CR, XR CHEST 1V, 07/07/2024, 21:35. FINDINGS: Surgical changes and devices: None. Lungs and pleura: Lungs are clear. No pleural effusions or pneumothorax. Mediastinum: Mediastinal contours appear normal. Heart size is normal. Bones and chest wall: No suspicious bony lesions. Overlying soft tissues appear unremarkable. IMPRESSION: No acute cardiopulmonary abnormality is seen. Approved by: Segun Tran M.D. on 11/04/2024 at 12:07
--- NOTE | 2024-11-04 11:28 | ED.AMS ---
HPI - Altered Mental Status <Tomás Jordan, DO - Last Filed: 11/05/24 07:30> General Chief Complaint: Altered Mental Status Stated Complaint: Increased Irritation & Confused Time Seen by Provider: 11/04/24 11:06 Source: patient Mode of arrival: EMS History of Present Illness HPI narrative: 79-year-old female history of dyslipidemia, hypertension, OA currently being treated for UTI noncompliant as she has stopped taking her medicine apparently fell 2 weeks ago and has been having hip pain and unstable gait per the family unable to give a clear history about the fall and does not recall and family is concerned that her undiagnosed dementia is getting worse as she is more confused, disoriented, refusing self care brought in for further evaluation at this time. Patient denies headache, dizziness, blurred vision, neck pain, chest pain, shortness of breath, cough, runny nose, sore throat, nausea, vomiting, diarrhea, constipation, or UTI symptoms or any rashes at this time. Other than what is stated 14 point review of system is negative Related Data Home Medications ?Medication ?Instructions ?Recorded ?Confirmed timolol maleate 0.5 % eye drops 1 drp EYE-BOTH QAM 11/04/24 11/04/24 Previous Rx's ?Medication ?Instructions ?Recorded diphenoxylate-atropine 2.5 1 tab PO PRN PRN diarrhea #18 tabs 09/03/17 mg-0.025 mg tablet Held on 06/08/22. Instructions: pt doesn't recall atorvastatin 20 mg tablet 20 mg PO ONCE PM #90 tabs 06/16/24 lisinopril 20 mg tablet 20 mg PO DAILY #90 tabs 09/01/24 diclofenac sodium 50 mg 50 mg PO QDAY #90 tabs 09/15/24 tablet,delayed release trazodone 50 mg tablet 50 mg PO BEDTIME PRN insomnia #90 09/15/24 tabs venlafaxine 75 mg capsule,extended 75 mg PO ONCE PM #90 caps 10/06/24 release 24 hr Allergies Allergy/AdvReac Type Severity Reaction Status Date / Time No Known Drug Allergies Allergy Verified 11/04/24 11:14 Review of Systems <Tomás Jordan, DO - Last Filed: 11/05/24 07:30> Review of Systems ROS Unobtainable: All systems reviewed & are unremarkable except as noted in HPI and below Patient History <Tomás Jordan DO - Last Filed: 11/05/24 07:30> Medical History (Updated 11/05/24 @ 07:23 by Miriam Johnson RN) Dermatitis of face Skin tags, multiple acquired Glaucoma (~1994) LLQ abdominal tenderness Skin cancer (~2004) Osteoarthritis (~1999) Anxiety (~2011) Osteopenia (~2016) Measles Chicken pox Hypertension (~1999) Surgical History Anesthesia History of eyelid surgery (~1999) History of tonsillectomy (~1954) Social History Smoking Status: Never smoker alcohol intake: former (Quit 2020) substance use type: does not use Smoking Status: Never smoker Exam <Tomás Jordan DO - Last Filed: 11/05/24 07:30> Narrative Exam Narrative: GENERAL: [79] year old patient appears stated age. Well-developed patient, in mild distress. HEAD: Atraumatic. Normocephalic. EYES: Pupils equal round and reactive. Extraocular motions intact. No scleral icterus. No injection or drainage. ENT: Nose without bleeding, purulent drainage. Throat without erythema, tonsillar hypertrophy or exudate. Airway patent. NECK: Trachea midline. Non tender CARDIOVASCULAR: Regular rate and rhythm without murmurs, gallops, or rubs. RESPIRATORY: Clear to auscultation. Breath sounds equal bilaterally. No wheezes, rales, or rhonchi. GASTROINTESTINAL: Abdomen soft, non-tender, nondistended. EXTREMITIES: No edema or joint tenderness. BACK: Nontender without deformity or crepitance. No flank tenderness. NEURO: AOx3. GCS of 15 nonfocal neuro exam SKIN: No rash or erythema of visible areas Initial Vital Signs Initial Vital Signs: Vital Signs Blood Pressure 205/94 H 11/04/24 11:05 <Silvia Medina MD - Last Filed: 11/10/24 08:13> Initial Vital Signs Initial Vital Signs: Vital Signs Blood Pressure 205/94 H 11/04/24 11:05 Course <Tomás Jordan DO - Last Filed: 11/05/24 07:30> Orders Ordered: Discontinued Medications Acetaminophen (Acetaminophen 325 Mg Tablet) 650 mg PO Q6H PRN PRN Reason: Fever/Mild Pain (1-3) Last Admin: 11/04/24 22:27 Dose: 650 mg Documented By: KARISSA Sodium Chloride (Normal Saline 0.9%) 1,000 mls @ 150 mls/hr IV CONT ADAN Last Infusion: 11/04/24 21:21 Dose: Infused Documented By: Infusion: 11/04/24 19:04 Dose: 0 mls/hr Documented By: Admin: 11/04/24 12:59 Dose: 150 mls/hr Documented By: JOAQUINA Lactated Ringer's (Lactated Ringers) 1,000 mls @ 1,000 mls/hr IV BOLUS ONE Stop: 11/04/24 12:26 Last Infusion: 11/04/24 12:54 Dose: Infused Documented By: Admin: 11/04/24 11:46 Dose: 1,000 mls/hr Documented By: JOAQUINA Trazodone HCl (Trazodone 50 Mg Tablet) 50 mg PO BEDTIME ADAN Last Admin: 11/05/24 00:12 Dose: 50 mg Documented By: AB Vital Signs Vital signs: Vital Signs - 8 hr 11/05/24 06:43 Pulse Rate 72 Respiratory Rate 18 Blood Pressure 172/86 H Pulse Oximetry 98 Oxygen Delivery Method Room Air <Silvia Medina MD - Last Filed: 11/10/24 08:13> Orders Ordered: Discontinued Medications Acetaminophen (Acetaminophen 325 Mg Tablet) 650 mg PO Q6H PRN PRN Reason: Fever/Mild Pain (1-3) Last Admin: 11/04/24 22:27 Dose: 650 mg Documented By: KARISSA Sodium Chloride (Normal Saline 0.9%) 1,000 mls @ 150 mls/hr IV CONT ADAN Last Infusion: 11/04/24 21:21 Dose: Infused Documented By: Infusion: 11/04/24 19:04 Dose: 0 mls/hr Documented By: Admin: 11/04/24 12:59 Dose: 150 mls/hr Documented By: JOAQUINA Lactated Ringer's (Lactated Ringers) 1,000 mls @ 1,000 mls/hr IV BOLUS ONE Stop: 11/04/24 12:26 Last Infusion: 11/04/24 12:54 Dose: Infused Documented By: Admin: 11/04/24 11:46 Dose: 1,000 mls/hr Documented By: JOAQUINA Trazodone HCl (Trazodone 50 Mg Tablet) 50 mg PO BEDTIME ADAN Last Admin: 11/05/24 00:12 Dose: 50 mg Documented By: AB Vital Signs Vital signs: Vital Signs - 8 hr 11/05/24 06:43 Pulse Rate 72 Respiratory Rate 18 Blood Pressure 172/86 H Pulse Oximetry 98 Oxygen Delivery Method Room Air MDM - Altered Mental Status <Tomás Jordan DO - Last Filed: 11/05/24 07:30> Lab Data 11/04/24 11:27 11/04/24 11:27 Labs: Lab Results 11/04/24 11/04/24 11/04/24 Range/Units 11:27 11:47 17:44 WBC 6.7 (4.5-11.0) X10^3/uL RBC 4.63 (4.0-5.2) X10^6/uL Hgb 14.3 (12.0-16.0) g/dL Hct 41.9 (36-46) % MCV 90.4 (80-100) fL MCH 30.9 (26-34) PG MCHC 34.1 (30-36) % RDW 13.6 (11.6-14.8) % Plt Count 248 (150-400) X10^3/uL Neut % (Auto) 72.1 (50-75) % Lymph % (Auto) 17.1 L (25-40) % Ida % (Auto) 9.2 (3-14) % Eos % (Auto) 1.1 L (2-4) % Baso % (Auto) 0.5 (0-2) % Neut # (Auto) 4800 (0140-7607) /uL Lymph # (Auto) 1100 (4403-6688) /uL Ida # (Auto) 600 (0-900) /uL Eos # (Auto) 100 (0-450) /uL Baso # (Auto) 0 (0-100) /uL Sodium 133 L (137-145) mmol/L Potassium 4.6 (3.4-5.1) mmol/L Chloride 100 (98-107) mmol/L Carbon Dioxide 26 (22-32) mmol/L BUN 20 H (7-17) mg/dL Creatinine 0.71 (0.52-1.04) mg/dL Estimated GFR > 60 (>60) mL/min BUN/Creatinine Ratio 28.2 H (6-22) Glucose 106 H (70-99) mg/dL Calcium 9.8 (8.4-10.2) mg/dL Total Bilirubin 1.1 (0.2-1.3) mg/dL AST 39 H (14-36) IU/L ALT 34 (<35) IU/L Alkaline Phosphatase 91 (38-126) U/L Total Creatine Kinase 96 (30-135) U/L Troponin I < 0.012 (0.01-0.034) ng/mL Total Protein 7.0 (6.3-8.2) g/dL Albumin 4.3 (3.5-5.0) g/dL Globulin 2.7 (1.7-4.1) g/dL Albumin/Globulin Ratio 1.6 (1.0-2.8) Lipase 184 (23-300) U/L Urine Color Yellow Urine Appearance Clear Urine pH 7.0 (4.5-8.0) Ur Specific [place] 1.010 (1.000-1.035) Urine Protein Negative (Negative) Urine Glucose (UA) Negative (Negative) g/dL Urine Ketones Negative (NEGATIVE) Urine Occult Blood Negative (Negative) Urine Nitrate Negative (Negative) Urine Bilirubin Negative (NEGATIVE) Urine Urobilinogen 0.2 (0.2) E.U./dL Ur Leukocyte Esterase Trace H (NEGATIVE) Urine RBC 0-1/hpf (0-5/HPF) Urine WBC 1-5/hpf (0-5/HPF) Ur Squamous Epith Cells 5-10 /hpf H (0-5/HPF) Urine Bacteria Few (2-10) H (None) Ur Culture Indicated? Cult not indicated Vol Urine Centrifuged 10ml (spun) SARS-CoV-2 (PCR) Negative (Negative) Urine Dip Bedside Urine Glucose Negative Bedside Urine Bilirubin - Negative Bedside Urine Ketone - Negative Urine Specific [place] 1.010 Bedside Urine Occult Blood - Negative Bedside Urine pH 7.0 Bedside Urine Protein - Negative Bedside Urine Urobilinogen - Negative Bedside Urine Nitrite - Negative Bedside Urine Leukocytes - Negative Esterase Imaging Data Chest x-ray: Radiologist's Impression: [address] [address] XRay Report Signed Patient: Tad Dao MR#: [id number] : 1945 Acct:[id number] Age/Sex: 79 / F Date of Service: 11/04/24 Loc: ED Accession Number: [id number] Procedure: XR chest 1V Ordering Provider: Tomás Jordan D.O. PROCEDURE: XR CHEST 1V INDICATIONS: chest pain TECHNIQUE: One view of the chest was acquired. COMPARISON: [facility], CR, XR CHEST 1V, 07/07/2024, 21:35. FINDINGS: Surgical changes and devices: None. Lungs and pleura: Lungs are clear. No pleural effusions or pneumothorax. Mediastinum: Mediastinal contours appear normal. Heart size is normal. Bones and chest wall: No suspicious bony lesions. Overlying soft tissues appear unremarkable. IMPRESSION: No acute cardiopulmonary abnormality is seen. CT scan - head: Radiologist's Impression: [address] [address] [address] Scan Report Signed Patient: Tad Dao MR#: [id number] : 1945 Acct:[id number] Age/Sex: 79 / F Date of Service: 11/04/24 Loc: ED Accession Number: [id number] Procedure: CT head/brain wo con Ordering Provider: Tomás Jordan D.O. PROCEDURE: CT HEAD/BRAIN WO CON INDICATIONS: fall/trauma TECHNIQUE: Noncontrast 4.5 mm thick angled axial sections acquired from the foramen magnum to the vertex, with coronal and sagittal reformats. For radiation dose reduction, the following was used: automated exposure control, adjustment of mA and/or kV according to patient size. COMPARISON: [facility], CT, CT HEAD/BRAIN WO CON, 07/07/2024, 21:35. FINDINGS: Image quality: Diagnostic. CSF spaces: Basal cisterns are patent. No extra-axial fluid collections. The ventricles are symmetric in size and shape. Brain: No acute intracranial hemorrhage or mass effect. There is cerebral volume loss, with resultant ventricular and sulcal prominence. There are periventricular and deep white matter chronic small vessel ischemic changes. There is intracranial internal carotid artery atherosclerosis. Skull and face: Calvarium and visualized facial bones appear intact, without suspicious lesions. Sinuses: Visualized sinuses and mastoids are clear. IMPRESSION: No acute intracranial pathology. CT scan - abdomen/pelvis: Radiologist's Impression: [address] [address] XRay Report Signed Patient: Tad Dao MR#: [id number] : 1945 Acct:[id number] Age/Sex: 79 / F Date of Service: 11/04/24 Loc: ED Accession Number: [id number] Procedure: XR pelvis 1-2V Ordering Provider: Tomás Jordan D.O. PROCEDURE: XR PELVIS 1-2V INDICATIONS: fall/trauma TECHNIQUE: Single AP view of the pelvis acquired. COMPARISON: None. FINDINGS: Bones: Deformity of the left femoral head and neck is of uncertain may be chronic, likely related to prior trauma versus chronic degenerative changes. Mixed sclerotic and lucent appearance of the right femoral head with flattening of the articular surface is suspicious for avascular necrosis with articular surface collapse versus subchondral fracture or severe osteoarthrosis with remodeling. Severe joint space narrowing is seen at the superior aspect of the right hip with subchondral sclerosis also seen along the acetabular margin. Multilevel degenerative changes in the spine Soft tissues: Visualized bowel gas pattern is normal. No suspicious soft tissue calcifications. IMPRESSION: 1. Flattening of the right femoral head articular surface and superimposed sclerotic appearance may be related to osteonecrosis or subchondral fracture with mild collapse of the superior articular surface versus severe primary osteoarthrosis with bony remodeling. 2. Deformity of the left femoral head and neck is of uncertain age, but is favored to be chronic and secondary to remote prior trauma and/or osteoarthrosis. ECG Data Interpretation: NSR HR 72 [place] 162 QRS [address]-t wave change No previous EKG to compare against MDM Narrative Medical decision making narrative: Vital signs, nurse triage note, medication list, previous ER visits, and all imaging studies reviewed. Head CT showed no acute process. Pelvic CT showed no visible displaced hip or pelvic fractures. Chest x-ray showed no acute process. Sodium 133 BUN 20 creatinine 0.71 glucose 106 troponin normal. UA showed trace leukocyte esterase 5-10 squamous and urine bacteria 2-10. Spoke with the daughter who is visiting from out of town at length out of concern for the safety of her mother whose is also chronically ill and unable to care for both the patient and himself at home. She has waxing and waning moments of disorientation and confusion is not safe to drive and has not been officially diagnosed with dementia but has underlying features and signs and symptoms that this is dementia. [place] are is here to evaluate patient along with social work. Patient has been turned over to Dr. Farooq at shift change pending final disposition Accepted to [facility]. Has been detained by DCR. Antipicated transfer at 7am <Silvia Medina MD - Last Filed: 11/10/24 08:13> Lab Data Labs: Lab Results 11/04/24 11/04/24 11/04/24 Range/Units 11:27 11:47 17:44 WBC 6.7 (4.5-11.0) X10^3/uL RBC 4.63 (4.0-5.2) X10^6/uL Hgb 14.3 (12.0-16.0) g/dL Hct 41.9 (36-46) % MCV 90.4 (80-100) fL MCH 30.9 (26-34) PG MCHC 34.1 (30-36) % RDW 13.6 (11.6-14.8) % Plt Count 248 (150-400) X10^3/uL Neut % (Auto) 72.1 (50-75) % Lymph % (Auto) 17.1 L (25-40) % Ida % (Auto) 9.2 (3-14) % Eos % (Auto) 1.1 L (2-4) % Baso % (Auto) 0.5 (0-2) % Neut # (Auto) 4800 (8995-7511) /uL Lymph # (Auto) 1100 (4914-4563) /uL Ida # (Auto) 600 (0-900) /uL Eos # (Auto) 100 (0-450) /uL Baso # (Auto) 0 (0-100) /uL Sodium 133 L (137-145) mmol/L Potassium 4.6 (3.4-5.1) mmol/L Chloride 100 (98-107) mmol/L Carbon Dioxide 26 (22-32) mmol/L BUN 20 H (7-17) mg/dL Creatinine 0.71 (0.52-1.04) mg/dL Estimated GFR > 60 (>60) mL/min BUN/Creatinine Ratio 28.2 H (6-22) Glucose 106 H (70-99) mg/dL Calcium 9.8 (8.4-10.2) mg/dL Total Bilirubin 1.1 (0.2-1.3) mg/dL AST 39 H (14-36) IU/L ALT 34 (<35) IU/L Alkaline Phosphatase 91 (38-126) U/L Total Creatine Kinase 96 (30-135) U/L Troponin I < 0.012 (0.01-0.034) ng/mL Total Protein 7.0 (6.3-8.2) g/dL Albumin 4.3 (3.5-5.0) g/dL Globulin 2.7 (1.7-4.1) g/dL Albumin/Globulin Ratio 1.6 (1.0-2.8) Lipase 184 (23-300) U/L Urine Color Yellow Urine Appearance Clear Urine pH 7.0 (4.5-8.0) Ur Specific [place] 1.010 (1.000-1.035) Urine Protein Negative (Negative) Urine Glucose (UA) Negative (Negative) g/dL Urine Ketones Negative (NEGATIVE) Urine Occult Blood Negative (Negative) Urine Nitrate Negative (Negative) Urine Bilirubin Negative (NEGATIVE) Urine Urobilinogen 0.2 (0.2) E.U./dL Ur Leukocyte Esterase Trace H (NEGATIVE) Urine RBC 0-1/hpf (0-5/HPF) Urine WBC 1-5/hpf (0-5/HPF) Ur Squamous Epith Cells 5-10 /hpf H (0-5/HPF) Urine Bacteria Few (2-10) H (None) Ur Culture Indicated? Cult not indicated Vol Urine Centrifuged 10ml (spun) SARS-CoV-2 (PCR) Negative (Negative) Urine Dip Bedside Urine Glucose Negative Bedside Urine Bilirubin - Negative Bedside Urine Ketone - Negative Urine Specific [place] 1.010 Bedside Urine Occult Blood - Negative Bedside Urine pH 7.0 Bedside Urine Protein - Negative Bedside Urine Urobilinogen - Negative Bedside Urine Nitrite - Negative Bedside Urine Leukocytes - Negative Esterase MDM Narrative Medical decision making narrative: Accepted to [facility]. Has been detained by DCR. Antipicated transfer at 7am Discharge Plan Departure Patient Disposition: Xfer [facility]iatric [facility]osp Clinical Impression: Dementia Prescriptions: No Action diphenoxylate-atropine 2.5 MG/0.025 MG tablet 1 tab PO PRN PRN (Reason: diarrhea) Qty: 18 0RF lisinopril 20 mg tablet 20 mg PO DAILY Qty: 90 0RF diclofenac sodium 50 mg tablet,delayed release (DR/EC) 50 mg PO QDAY Qty: 90 1RF trazodone 50 mg tablet 50 mg PO BEDTIME PRN (Reason: insomnia) Qty: 90 1RF venlafaxine 75 mg capsule,extended release 24hr 75 mg PO ONCE PM Qty: 90 0RF atorvastatin 20 mg tablet 20 mg PO ONCE PM Qty: 90 3RF timolol maleate 0.5 % drops 1 drp EYE-BOTH QAM Referrals: Halie Cannon DO [Primary Care Provider, Medical]
[2024-11-04] MEDS: LACTATED RINGERS 1,000 ML 1000 ML IV (11:46)
--- NOTE | 2024-11-04 11:48 | PC.NURSE ---
Family reports decline in mentation since 2016. Daughter (from out of town) noted pt to have increased confusion this past August compared to February. Pt states her age, name, birthday, and place appropriately; however pt is repetitive. For questions pt does not know answers to she responds she is stressed. Daughter notes multiple antibiotics that have been unfinished. Pt has waxing and waning aggression. Pt was recently taken off Ambien. Pt denies any recent falls. Denies head, neck, belly pain. Reports right hip/thigh has continued to bother her since her 30s d/t snow shoveling accident; however, daughter states pt fell on August 28 per chiropractor.
[2024-11-04 11:49] LABS: Add Manual Diff / Slide Review NO; Basophils Absolute Auto 0 /uL (0-100); Basophils Percent Auto 0.5 % (0-2); Eosinophils Absolute Auto 100 /uL (0-450); Eosinophils Percent Auto 1.1 % (2-4); Hematocrit 41.9 % (36-46); Hemoglobin 14.3 g/dL (12.0-16.0); Lymphocytes Absolute Auto 1100 /uL (1100-4500); Lymphocytes Percent Auto 17.1 % (25-40); Mean Corpuscular HGB Conc 34.1 % (30-36); Mean Corpuscular Hemoglobin 30.9 PG (26-34); Mean Corpuscular Volume 90.4 fL (80-100); Monocytes Absolute Auto 600 /uL (0-900); Monocytes Percent Auto 9.2 % (3-14); Neutrophils Absolute Auto 4800 /uL (1500-7000); Neutrophils Percent Auto 72.1 % (50-75); Platelet Count 248 X10^3/uL (150-400); Red Blood Cell Count 4.63 X10^6/uL (4.0-5.2); Red Cell Distribution Width 13.6 % (11.6-14.8); White Blood Cell Count 6.7 X10^3/uL (4.5-11.0)
[2024-11-04 11:57] LABS: Alanine Aminotransferase 34 IU/L (<35); Albumin 4.3 g/dL (3.5-5.0); Albumin Globulin Ratio 1.6 (1.0-2.8); Alkaline Phosphatase 91 U/L (38-126); Aspartate Aminotransferase 39 IU/L (14-36); BUN Creatinine Ratio 28.2 (6-22); Bilirubin Total 1.1 mg/dL (0.2-1.3); Blood Urea Nitrogen 20 mg/dL (7-17); Calcium 9.8 mg/dL (8.4-10.2); Carbon Dioxide 26 mmol/L (22-32); Chloride 100 mmol/L (98-107); Creatine Kinase 96 U/L (30-135); Estimated Glomerular Filt Rate > 60 mL/min (>60); Globulin 2.7 g/dL (1.7-4.1); Glucose 106 mg/dL (70-99); HEMOLYSIS 31 (0-50); Lipase 184 U/L (23-300); Potassium 4.6 mmol/L (3.4-5.1); Sodium 133 mmol/L (137-145)
--- NOTE | 2024-11-04 12:07 | EKG_ITS ---
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
[2024-11-04 12:09] LABS: Troponin I < 0.012 ng/mL (0.01-0.034)
[2024-11-04] MEDS: SODIUM CHLORIDE 0.9% 1,000 ML 150 ML IV (12:59)
--- NOTE | 2024-11-04 13:02 | DI.RAD.S_ITS ---
PROCEDURE: XR PELVIS 1-2V INDICATIONS: fall/trauma TECHNIQUE: Single AP view of the pelvis acquired. COMPARISON: None. FINDINGS: Bones: Deformity of the left femoral head and neck is of uncertain may be chronic, likely related to prior trauma versus chronic degenerative changes. Mixed sclerotic and lucent appearance of the right femoral head with flattening of the articular surface is suspicious for avascular necrosis with articular surface collapse versus subchondral fracture or severe osteoarthrosis with remodeling. Severe joint space narrowing is seen at the superior aspect of the right hip with subchondral sclerosis also seen along the acetabular margin. Multilevel degenerative changes in the spine Soft tissues: Visualized bowel gas pattern is normal. No suspicious soft tissue calcifications. IMPRESSION: 1. Flattening of the right femoral head articular surface and superimposed sclerotic appearance may be related to osteonecrosis or subchondral fracture with mild collapse of the superior articular surface versus severe primary osteoarthrosis with bony remodeling. 2. Deformity of the left femoral head and neck is of uncertain age, but is favored to be chronic and secondary to remote prior trauma and/or osteoarthrosis. Approved by: Segun Tran M.D. on 11/04/2024 at 14:07
[2024-11-04 13:03] LABS: Appearance Urine UA CLEAR; Bilirubin Urine UA NEGATIVE (NEGATIVE); Color Urine UA YELLOW; Glucose Urine UA NEGATIVE (Negative); Ketones Urine UA NEGATIVE (NEGATIVE); Leukocyte Esterase Urine UA TRACE (NEGATIVE); Nitrite Urine UA NEGATIVE (Negative); Occult Blood Urine UA NEGATIVE (Negative); Protein Urine UA NEGATIVE (Negative); Urobilinogen Urine UA 0.2 E.U./dL (0.2)
[2024-11-04 13:13] LABS: Bacteria Urine Few (2-10); Culture Indicated Urine Cult Not Indicated; RBC Urine 0-1/HPF (0-5/HPF); Squamous Epithelial Cell Urine 5-10 /HPF (0-5/HPF); Urine Volume 10mL (spun); WBC Urine 1-5/HPF (0-5/HPF)
[2024-11-04 18:07] LABS: COVID19 -Nasal RAPID Negative (Negative)
--- NOTE | 2024-11-04 18:56 | CM.SWNOTE ---
ED BUYERS' AGENT Assessment Note: BUYERS' AGENT - Oven Builder Assessment BUYERS' AGENT/Oven Builder Assessment Time Spent with Patient Start date 11/04/24 Visit Start Time 15:40 End date 11/04/24 Visit End Time 16:40 Total time Care 60 min (w family and pt) Management spent on patient visit-in minutes Mental Health Screening Include Onset, Duration, Intensity Presenting Problem Patient presented to the ED via EMS for altered mental status, concerns for grave disability and danger to herself and others due to some passive SI and inappropriate, unsafe actions. NO previous diagnosis of dementia or cognitive impairment disorder. Patient family states patient has had some symptoms of memory loss since 2016 but has since accelerated on 08/2024. Patient family states in the last two weeks, patient has been increasingly confused, sleep walking (9 out of 10 of the previous nights) and not sleeping which includes getting out of room and house upwards of 6x a night. Patient denies being aware of these actions. Per EMT, this is concerning as they were called this morning to the patient's home by pt's daughter due to the fact that patient attempted to drive at 0100 this morning in the middle of a sleep walking episode. Precipitating Event( Patient daughter (who is visiting from [facility]) ) and pt spouse are steadfast in the belief that patient is a danger to herself and others due to that fact that patient has been declining medical treatment, memory loss, sleep walking and being non-medication compliant. Patient last saw her PCP in May 2024. Patient has also been noted by family members to be emotionally volatile and verbally abusive towards her ; she has threatened divorce as well as suicide. Her spouse states her threats of suicide is a frequent, weekly occurrence. Patient lives with her only who has been experiencing Multiple sclerosis and he has been essentially wheelchair bound. Patient has declined home health care or any type of private caregiving for herself or spouse. Patient Strengths Patient is supported by her spouse, Dereck, at bedside as well as her daughter, Yadiel. Current Behavioral None established. Health Provider(s) Include Facility, Provider, Ph. # Psych. Hx Mental None reported, previous Rx of Effexor by PCP. UTox is [facility] negative. Dependency Family Hx of None reported. Behavioral Abuse Psychiatric None reported. Hospitalizations ( date(s)/location) Psychosocial Patient is a 79yo female, resident of [place] with information & her spouse, Dereck. 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 Legal Concerns Legal Matters - None reported. Outstanding Issues Mental Status Orientation (Person/ AOx1-2 Place/Time) Stated Mood Shocked Affect (Congruent Labile, congruent with mood with Mood?) Thought Content - None reported by patient. Specify/Describe Obsessions, Delusions, Hallucinations Thought Processes ( Tangential, thought blocking. Logical-Coherent- Goal Directed- Detailed-Tangential- Circumstantial- Logical-Disorganized -Thought Blocking) Speech (Normal-Slow- Pressured, soft, slow Pfspznn-Cevbt-Hzoo- Loud-Pressured) Motor (Normal- Normal Owjzuhdva-Fzxb-Krrpu ) Insight (Good-Fair- Poor/limited Poor/Limited) Judgement (Good-Fair Poor/limited -Poor/Limited) Impulse Control ( Impaired Adequate-Impaired) Memory (Immediate- Impaired Recent-Remote, Impaired-Intact) Concentration ( Impaired Intact-Impaired) Attention (Intact- Impaired Impaired) Behavior ( Inappropriate Appropriate- Inappropriate) Additional Comment Patient is calm during this BUYERS' AGENT assessment, waxes and wanes with memory, seems labile emotionally during assessment. Risk Assessment Suicidal Ideation ( No Plan) Homicidal Ideation ( No Plan) Comment Denies SI during this assessment. Made statements to spouse regularly. After this assessment and discussion of care plans, when this BUYERS' AGENT stepped out of room, patient changed demeanor and made SI statements out of her frustration. No plans/intent identified. Intervention Intervention Reviewed chart and discussed with ED Provider pt's medical status and discharge needs. ED BUYERS' AGENT meets with patient and pt family. Patient endorses she does not usually remember the events that her family explained above of her memory loss and erratic behavior/cognition. Patient family continue to express that patient is not safe at home in the care of her who is disabled, especially when she is non compliant with medications or care plans. Patient family believes pt is gravely disabled. ED BUYERS' AGENT and patient discuss goals of care. Patient expressed she would like time to think about it and talk to her about voluntary vs. involuntary treatment. Patient labile with reasoning for treatment. Ultimately, she decided she did not want to be voluntary for treatment and began to make statements of suicidality to family. At this time, it is the opinion of this BUYERS' AGENT that patient would benefit from inpatient psychiatric hospitalization for medication/crisis stabilization and DCR evaluation for PAULINA placement. BUYERS' AGENT informs ED provider, Dr. Jordan, who indicates agreement. BUYERS' AGENT informs TONYA Orellana. Plan RA Plan DCR dispatched, plan of care evolving. No safe discharge at home, will need psych placement vs. memory care placement. OPAL Suárez
--- NOTE | 2024-11-04 19:18 | DI.CT.S_ITS ---
PROCEDURE: CT PEL WO CON INDICATIONS: trauma TECHNIQUE: Noncontrast 3 mm axial sections acquired through the bony pelvis, with coronal and sagittal reformatting. COMPARISON: [facility], CR, XR PELVIS 1-2V, 11/04/2024, 13:08. FINDINGS: Image quality: Excellent. Bones: Chronic appearing right femoroacetabular superior joint space loss with njlj-[id number]-jmpd and flattening of the femoral head. Sclerosis and subcortical cystic changes are noted as well as fragmentation of the superior and posterior acetabular fossa. Definite acute fracture plane is not seen. There is an age indeterminate impacted fracture of the subcapital left femoral neck. Femoral head remains located. There is foreshortening of the femoral head and neck junction. Prominent marginal osteophytes on the femoral head are present. The joint space is maintained. The acetabulum appears normal. No definite acute pelvic fractures. Mild degenerative changes noted as sacroiliac joints and pubic symphysis. Moderate disc and endplate degeneration found in the lower lumbar spine. Soft tissues: Small right femoroacetabular joint effusion. Mild calcification of the inferior joint capsule. There is muscular atrophy of the left lateral gluteal muscles, likely secondary to remote trauma. No acute intramuscular hematoma seen. Intrapelvic soft tissues are within normal limits. No visible hematoma. IMPRESSION: No visible displaced hip or pelvic fractures. There are severe degenerative changes in the right hip. While these have a chronic appearance, any acute progression would be best seen by MRI. Right hip joint effusion with capsular calcification, presumed chronic. Prior impacted left femoral neck fracture. Dictated by: Joaquina Leach M.D. on 11/04/2024 at 20:37 Approved by: Joaquina Leach M.D. on 11/04/2024 at 20:47
--- NOTE | 2024-11-04 20:05 | CM.SWNOTE ---
ED OPTOELECTRONICS ENGINEER Note: Spoke with DCR with pt family before his assessment. From collateral contacts, he states he will likely detain patient. DCR attempted to complete assessment, it is reported that pt utilized her right to silence and did not want to continue with assessment. JULIO CESAR Del Cid ended assessment and officially detained patient. Per collaboration with DCR, OPTOELECTRONICS ENGINEER initiated bed search on DCR behalf by sending inital clinicals to the following facilities: - [facility], it is reported there are beds available and noted that pt is independent of ADLs and does not use DMEs, sent packet for review via fax. - [facility], it is reported there are beds available and noted that pt is independent of ADLs and does not use DMEs, sent packet for review via fax. - [facility] ([facility]), it is reported that there are 3 beds available, sent packet for review via fax. - [facility] ([facility]), it is reported they are at capacity and not taking any referrals. - [facility] ([facility]) it is reported that they are at capacity. Noted on all faxes to above facilities is JULIO CESAR Del Cid's contact information, ph# [phone] email: [email or web address]. OPTOELECTRONICS ENGINEER sent DCR bed search findings via fax per his request. Plan: Pt detained, DCR attempting bed placement for involuntary inpatient psych. OPAL Suárez
--- NOTE | 2024-11-04 21:57 | PC.NURSE ---
Spoke to Minal from [facility], gave report for possible intake. She will discuss with her provider, then DCR.
[2024-11-04] MEDS: ACETAMINOPHEN 325 MG TABLET 650 MG PO (22:27)
--- NOTE | 2024-11-04 23:53 | PC.NURSE ---
Arranged BLS transport for patient scheduled 11/05/24 @ 0700 with an arrival of noon. Called Minal at [facility], left message to call back if she has further questions.
--- NOTE | 2024-11-04 23:57 | PC.NURSE ---
Pt currently waiting for bed placement. JULIO CESAR Zaragoza is working on this and will follow up with pt family.
[2024-11-05] MEDS: TRAZODONE 50 MG TABLET PO (00:12)
--- NOTE | 2024-11-05 01:34 | PC.NURSE ---
During the last few hours patient has been up and out of room a few times asking for purse or family member. Reassured pt each time that her belongings are with family and they are at home sleeping at this time.
--- NOTE | 2024-11-05 04:37 | PC.NURSE ---
Pt came out to nursing station again, hyper focused on this nurse placing her purse in the medication room. Advised pt that I have never touched her belongings and that her family /daughter have taken her belongings with her.
--- NOTE | 2024-11-05 06:35 | PC.NURSE ---
Called daughter to get information about her purse. Fabian stated that her purse is where she left it. On the file cabinet next to the desk with her red chair. Daughter will drop off eye glasses, but states that she will leave her purse untouched exactly where she left it.
[2024-11-05 06:43] VITALS: BP 172/86; PULSE 72; RESP 18; O2SAT 98
--- NOTE | 2024-11-05 06:50 | PC.NURSE ---
Pt placed in disposable scrubs and given breakfast. Raisin Bran cereal with whole milk.
--- NOTE | 2024-11-05 07:19 | PC.NURSE ---
Pt put on a small brief under her disposable underwear. [place] given with suction tubing to medics for ride from here to [facility]. Estimated arrival is around noon.
== END 2024-11-05 07:23 ==
PROVIDERS: Emergency Provider Family Medicine; PCP Family Medicine
DX: F03.90 Unspecified dementia, unspecified severity, without behavioral disturbance, psychotic disturbance, mood disturbance, and anxiety (principal)
CPT/HCPCS: 70450; 71045; 72170; 72192; 80053; 81001; 81003; 82550; 83690; 84484; 85025; 87635; 93005; 93010; 96360; 96361; 99284

== ENCOUNTER 2025-01-29 00:07 | Emergency (ER) | payer MEDICARE, OTHER, SELFPAY ==
[2025-01-29 00:15] VITALS: BP 123/71; PULSE 87; RESP 18; TEMP 36.3; O2SAT 96; BMI 20.2
--- NOTE | 2025-01-29 00:26 | DI.RAD.S_ITS ---
PROCEDURE: XR KNEE RT 3V INDICATIONS: fall, injury with pain. TECHNIQUE: 3 views of the knee were acquired. COMPARISON: None. FINDINGS: Bones: No fractures or dislocations. No suspicious bony lesions. Severe tricompartmental arthritic change. Soft tissues: No joint effusion. No suspicious soft tissue calcifications. IMPRESSION: No visualized acute fracture or dislocation. However, if clinical concern and/or pain persist, short interval imaging followup in 7-10 days is recommended, as occult injury cannot be definitively excluded. Dictated by: Bindu Woodward M.D. on 01/29/2025 at 0:52 Approved by: Bindu Woodward M.D. on 01/29/2025 at 0:52
--- NOTE | 2025-01-29 01:01 | ED.FALL ---
HPI - Fall General Chief Complaint: Fall Stated Complaint: GLF Time Seen by Provider: 01/29/25 00:49 Source: patient and EMS Mode of arrival: EMS History of Present Illness HPI Narrative: 79-year-old female with history of dementia, had a fall at home with right-sided knee pain, unclear if she might have tripped on something, she has had frequent falls, uses a walker in the house. No other injuries recalled. No swelling to the right knee, painful with movement. No discomfort with the right foreleg, ankle, foot, toes. No discomfort right thigh hip. No known pain or injury to the head, face, neck, upper mid lower back, chest abdomen and pelvis. She has not take blood thinner medications. Related Data Home Medications ?Medication ?Instructions ?Recorded ?Confirmed timolol maleate 0.5 % eye drops 1 drp EYE-BOTH QAM 11/04/24 01/13/25 acetaminophen 500 mg tablet 1,000 mg PO Q6H pain 01/13/25 01/13/25 lidocaine 4 % topical patch 1 patch topical DAILY PRN 01/13/25 01/13/25 Previous Rx's ?Medication ?Instructions ?Recorded donepezil 10 mg tablet 10 mg PO BEDTIME memory #90 tabs 12/10/24 mirtazapine 15 mg tablet 15 mg PO BEDTIME depression, 12/10/24 weight loss, sleep #90 tabs trazodone 50 mg tablet 100 mg (2 x 50 mg) PO BEDTIME 12/10/24 depression, sleep #90 tabs clonazepam 0.5 mg tablet 0.5 mg PO .COMPLEX agitation #60 01/13/25 tabs tramadol 50 mg tablet 50 mg PO BEDTIME PRN pain not 01/13/25 improved by tylenol #60 tabs Allergies Allergy/AdvReac Type Severity Reaction Status Date / Time No Known Drug Allergies Allergy Verified 01/29/25 00:16 Patient History Medical History (Updated 01/29/25 @ 02:05 by Stephan Stern MD) Dyslipidemia Dermatitis of face Skin tags, multiple acquired Glaucoma (~1994) LLQ abdominal tenderness Skin cancer (~2004) Osteoarthritis (~1999) Anxiety (~2011) Osteopenia (~2016) Measles Chicken pox Hypertension (~1999) Surgical History Anesthesia History of eyelid surgery (~1999) History of tonsillectomy (~1954) Social History alcohol intake: former (Quit 2020) substance use type: does not use Exam Narrative Exam Narrative: GENERAL: Well-developed patient, in mild distress. HEAD: Atraumatic. Normocephalic. EYES: Pupils equal round and reactive. Extraocular motions intact. No scleral icterus. No injection or drainage. ENT: Nose without bleeding, purulent drainage. Throat without erythema, tonsillar hypertrophy or exudate. Airway patent. NECK: Trachea midline. Non tender CARDIOVASCULAR: Regular rate and rhythm without murmurs, gallops, or rubs. RESPIRATORY: Clear to auscultation. Breath sounds equal bilaterally. No wheezes, rales, or rhonchi. GASTROINTESTINAL: Abdomen soft, non-tender, nondistended. EXTREMITIES: Right knee anterior tenderness, no gross deformity or skin changes or swelling, no abrasions or punctures, no tenderness to medial joint line or lateral joint line. No limb length discrepancy. No tenderness distal right extremity or proximal right extremity or hip. BACK: Nontender without deformity or crepitance. No flank tenderness. NEURO: AOx3. Motor functions grossly nonfocal. SKIN: No rash or erythema of visible areas Initial Vital Signs Initial Vital Signs: Vital Signs Temperature 97.4 F L 01/29/25 00:15 Pulse Rate 87 01/29/25 00:15 Respiratory Rate 18 01/29/25 00:15 Blood Pressure 123/71 01/29/25 00:15 Pulse Oximetry 96 01/29/25 00:15 Oxygen Delivery Method Nasal Cannula 01/29/25 00:15 Course Orders Ordered: Discontinued Medications Acetaminophen (Acetaminophen 325 Mg Tablet) 650 mg PO NOW ONE Stop: 01/29/25 02:53 Last Admin: 01/29/25 03:22 Dose: 650 mg Documented By: NIDHI Vital Signs Vital signs: Vital Signs - 8 hr 01/29/25 00:15 01/29/25 01:53 Temperature 97.4 F L Pulse Rate 87 71 Respiratory Rate 18 16 Blood Pressure 123/71 128/69 Pulse Oximetry 96 100 Oxygen Delivery Method Nasal Cannula Room Air MDM - Fall Imaging Data Extremity x-ray #1: Radiologist's Impression: [address] [address] XRay Report Signed Patient: Tad Dao MR#: [id number] : 1945 Acct:[id number] Age/Sex: 79 / F Date of Service: 01/29/25 Loc: ED Accession Number: [id number] Procedure: XR knee RT 3V Ordering Provider: Stephan Stern MD PROCEDURE: XR KNEE RT 3V INDICATIONS: fall, injury with pain. TECHNIQUE: 3 views of the knee were acquired. COMPARISON: None. FINDINGS: Bones: No fractures or dislocations. No suspicious bony lesions. Severe tricompartmental arthritic change. Soft tissues: No joint effusion. No suspicious soft tissue calcifications. IMPRESSION: No visualized acute fracture or dislocation. However, if clinical concern and/or pain persist, short interval imaging followup in 7-10 days is recommended, as occult injury cannot be definitively excluded. Dictated by: Bindu Woodward M.D. on 01/29/2025 at 0:52 Approved by: Bindu Woodward M.D. on 01/29/2025 at 0:52 MDM Narrative Medical decision making narrative: 79-year-old female had ground level fall at her home, right knee pain. No gross deformity. No significant tenderness to medial or lateral joint line, no limb length discrepancy on examination, no gross effusion. X-ray ordered from triage. X-ray right knee shows no obvious fracture changes. See radiology report. Trial of walker, patient tolerated well, declines knee immobilizer splint, amenable to Markell wrap, applied by ED nursing. [facility] contacted who can come get patient, and feels comfortable trying to get her back into house, no difficulties known to access, flat entry to the house per patient. Discharged home, advised use of walker and partial weight-bearing as tolerated with left knee or nonweightbearing if not tolerated. Recheck advised in clinic with regular provider in 2 days. Return precautions discussed. Discharge Plan Departure Patient Disposition: Home Clinical Impression: Contusion of right knee Activity Restrictions/Additional Instructions: Ground level fall with right knee pain, x-rays without obvious fracture. Partial weight-bearing only for now to help rest the knee, with use of walker. Recheck with your regular doctor in the next couple of days. Return to this/nearest emergency department for any change worsening symptoms or any concerns prior. Prescriptions: No Action donepezil 10 mg tablet 10 mg PO BEDTIME Qty: 90 1RF mirtazapine 15 mg tablet 15 mg PO BEDTIME Qty: 90 1RF trazodone 50 mg tablet 100 mg PO BEDTIME Qty: 90 1RF Rx Instructions: take two tablets (100mg) by mouth at bedtime acetaminophen 500 mg tablet 1,000 mg PO Q6H Rx Instructions: Take 2 tablets by mouth at bedtime, scheduled. May also take 1 tablet Q6h PRN for pain but do not exceed total of 3,000mg/day clonazepam 0.5 mg tablet 0.5 mg PO .COMPLEX Qty: 60 2RF Rx Instructions: 0.5 mg orally Take 1 tablet by mouth everyday after dinner. lidocaine 4 % adhesive patch,medicated 1 patch topical DAILY PRN Rx Instructions: Place 1 patch onto the skin every 24 hours. Apply patch to area of pain, (usually right hip) in the morning and remove patch at bedtime. tramadol 50 mg tablet 50 mg PO BEDTIME MDD 100mg PRN (Reason: pain not improved by tylenol) Qty: 60 2RF timolol maleate 0.5 % drops 1 drp EYE-BOTH QAM Referrals: Kyara Kaufman DO [Physician, Orthopedic Surgery] Halie Cannon DO [Primary Care Provider, Medical] Stand Alone Forms: Patient Portal/API
[2025-01-29 01:53] VITALS: BP 128/69; PULSE 71; RESP 16; O2SAT 100
--- NOTE | 2025-01-29 02:40 | PC.NURSE ---
Patient able to ambulate in halls, slow and steady with wheeled walker. Markell wrap applied to right knee for support.
[2025-01-29] MEDS: ACETAMINOPHEN 325 MG TABLET 650 MG PO (03:22)
== END 2025-01-29 04:50 | disposition home or self-care (01) ==
PROVIDERS: Emergency Provider Emergency Medicine; PCP Family Medicine
DX: S80.01XA Contusion of right knee, initial encounter (principal); W18.30XA Fall on same level, unspecified, initial encounter
CPT/HCPCS: 73562; 99283; 99284

== ENCOUNTER 2025-01-30 15:54 | Emergency (ER) | payer MEDICARE, OTHER, SELFPAY ==
[2025-01-30 15:57] VITALS: BP 122/75; PULSE 102; RESP 16; TEMP 36.7; O2SAT 100; BMI 20.5
--- NOTE | 2025-01-30 16:11 | EKG_ITS ---
[place] [address] [place] [id number] Test Date: 2025-01-30 Pat Name: Tad Dao Department: [facility] Room: Gender: Female Rehabilitation Nurse: DAVID : 1945 Requested By: Order Number: [id number] Reading MD: Tomás Storey MD Measurements Intervals [place] Rate: 83 P: 20 VT: 162 QRS: -12 QRSD: 80 T: 24 QT: 378 QTc: 444 Interpretive Statements Normal sinus rhythm Minimal voltage criteria for LVH, may be normal variant ( R in aVL ) Electronically Signed On 02-01-2025 7:46:39 PDT by Tomás Storey MD
--- NOTE | 2025-01-30 16:11 | DI.RAD.S_ITS ---
PROCEDURE: XR CHEST 1V INDICATIONS: suspected sepsis TECHNIQUE: One view of the chest was acquired. COMPARISON: [facility], CR, XR CHEST 1V, 11/04/2024, 11:27. [facility], CR, XR CHEST 1V, 07/07/2024, 21:35. FINDINGS: Surgical changes and devices: None. Lungs and pleura: Lungs are clear. No pleural effusions or pneumothorax. Mediastinum: Mediastinal contours appear normal. Heart size is normal. Bones and chest wall: No suspicious bony lesions. Overlying soft tissues appear unremarkable. IMPRESSION: No acute cardiopulmonary abnormality is seen. Dictated by: Era Bowden M.D. on 01/30/2025 at 16:41 Approved by: Era Bowden M.D. on 01/30/2025 at 16:41
[2025-01-30 16:22] LABS: Add Manual Diff / Slide Review NO; Hematocrit 37.5 % (36-46); Hemoglobin 13.1 g/dL (12.0-16.0); Lymphocytes Absolute Auto 600 /uL (1100-4500); Mean Corpuscular HGB Conc 35.0 % (30-36); Mean Corpuscular Hemoglobin 30.3 PG (26-34); Mean Corpuscular Volume 86.5 fL (80-100); Platelet Count 296 X10^3/uL (150-400)
[2025-01-30 16:39] LABS: INR 1.1 (0.9-1.3); Prothrombin Time 12.5 SECONDS (9.4-12.5)
[2025-01-30 16:41] LABS: PTT Partial Thromboplastin Tim 26 SECONDS (25.1-36.5)
[2025-01-30 16:42] LABS: Alanine Aminotransferase 17 IU/L (<35); Albumin 4.0 g/dL (3.5-5.0); Albumin Globulin Ratio 1.2 (1.0-2.8); Alkaline Phosphatase 86 U/L (38-126); Blood Urea Nitrogen 14 mg/dL (7-17); Calcium 9.4 mg/dL (8.4-10.2); Carbon Dioxide 20 mmol/L (22-32); Chloride 98 mmol/L (98-107); Estimated Glomerular Filt Rate > 60 mL/min (>60); Globulin 3.4 g/dL (1.7-4.1); Glucose 106 mg/dL (70-99); HEMOLYSIS 16 (0-50); Lipase 31 U/L (23-300); Potassium 3.4 mmol/L (3.4-5.1); Sodium 133 mmol/L (137-145); Total Protein 7.4 g/dL (6.3-8.2)
[2025-01-30 16:43] LABS: Lactate (Lactic Acid) 1.2 mmol/L (0.7-2.1)
[2025-01-30] MEDS: SODIUM CHLORIDE 0.9% 1,000 ML 1000 ML IV (16:46)
[2025-01-30 17:00] LABS: Procalcitonin 0.067 ng/mL (<0.5)
--- NOTE | 2025-01-30 17:17 | DI.CT.S_ITS ---
PROCEDURE: CT ABDOMEN PELVIS W CON INDICATIONS: abd pain /diarrhea TECHNIQUE: After the administration of intravenous contrast, axial sections acquired from the lung bases to the pubic symphysis. Coronal and sagittal reformats were performed. For radiation dose reduction, the following was used: automated exposure control, adjustment of mA and/or kV according to patient size. COMPARISON: None. FINDINGS: Image quality: Diagnostic. Lower Chest: No significant findings. ABDOMEN: Liver: No solid mass. Gallbladder: There are calcified stones without associated wall thickening or pericholecystic fluid. Biliary ducts: No biliary dilation. Pancreas: No ductal dilation. Spleen: Size is within normal limits. Adrenal Glands: No adrenal nodules. Kidneys and Ureters: No hydronephrosis. No solid mass. No complex renal cystic lesion which requires follow up. Stomach and Bowel: Bowel is of normal caliber without obstruction. No focal or diffuse wall thickening. The appendix is normal. Peritoneum: No abnormal intraperitoneal fluid. No free air. Ventral Wall: No significant ventral hernia. Abdominal Nodes: No retroperitoneal or mesenteric adenopathy by size criteria. Vessels: Aorta and inferior vena cava are normal in size. PELVIS: Pelvic Organs: Unremarkable. Bladder: No bladder wall thickening, accounting for underdistention. Pelvic Nodes: No enlarged lymph nodes. Miscellaneous: Fat containing bilateral inguinal hernias are present. Bones: No aggressive osseous abnormality. Moderate to severe degenerative changes with dextrocurvature of the lumbar spine. Severe degenerative changes of the hips with a remote left femoral neck fracture are shown. IMPRESSION: No CT evidence for the etiology of the patient's symptoms. Specifically, no obstruction, appendicitis, diverticulitis, or urolithiasis. Dictated by: Era Bowden M.D. on 01/30/2025 at 16:46 Approved by: Era Bowden M.D. on 01/30/2025 at 16:50
[2025-01-30 17:56] VITALS: BP 146/71; PULSE 88; O2SAT 97
[2025-01-30 18:00] VITALS: BP 128/60; PULSE 87; O2SAT 85
--- NOTE | 2025-01-30 18:06 | ED.GENADULT ---
HPI - General Adult General Chief complaint: Weakness Stated complaint: diarrhea possible dehydrated Time Seen by Provider: 01/30/25 16:03 History of Present Illness HPI narrative: 79-year-old female with history of Alzheimer's dementia, noted by and family to have recent loose stools, decreased oral intake, concern for possible dehydration. No black or red stools. No fevers or chills. No recent exposure to antibiotics. No abdominal pain. No nausea or vomiting. No exposure to persons in the household with similar symptoms. Related Data Home Medications ?Medication ?Instructions ?Recorded ?Confirmed timolol maleate 0.5 % eye drops 1 drp EYE-BOTH QAM 11/04/24 01/13/25 acetaminophen 500 mg tablet 1,000 mg PO Q6H pain 01/13/25 01/13/25 lidocaine 4 % topical patch 1 patch topical DAILY PRN 01/13/25 01/13/25 Previous Rx's ?Medication ?Instructions ?Recorded donepezil 10 mg tablet 10 mg PO BEDTIME memory #90 tabs 12/10/24 mirtazapine 15 mg tablet 15 mg PO BEDTIME depression, 12/10/24 weight loss, sleep #90 tabs trazodone 50 mg tablet 100 mg (2 x 50 mg) PO BEDTIME 12/10/24 depression, sleep #90 tabs clonazepam 0.5 mg tablet 0.5 mg PO .COMPLEX agitation #60 01/13/25 tabs tramadol 50 mg tablet 50 mg PO BEDTIME PRN pain not 01/13/25 improved by tylenol #60 tabs Allergies Allergy/AdvReac Type Severity Reaction Status Date / Time No Known Drug Allergies Allergy Verified 01/29/25 00:16 Patient History Medical History (Updated 01/30/25 @ 19:00 by Stephan Stern MD) Dyslipidemia Dermatitis of face Skin tags, multiple acquired Glaucoma (~1994) LLQ abdominal tenderness Skin cancer (~2004) Osteoarthritis (~1999) Anxiety (~2011) Osteopenia (~2016) Measles Chicken pox Hypertension (~1999) Surgical History Anesthesia History of eyelid surgery (~1999) History of tonsillectomy (~1954) Social History alcohol intake: former (Quit 2020) substance use type: does not use Exam Narrative Exam Narrative: GENERAL: Well-developed patient, in mild distress. HEAD: Atraumatic. Normocephalic. EYES: Pupils equal round and reactive. Extraocular motions intact. No scleral icterus. No injection or drainage. ENT: Nose without bleeding, purulent drainage. Throat without erythema, tonsillar hypertrophy or exudate. Airway patent. NECK: Trachea midline. Non tender CARDIOVASCULAR: Regular rate and rhythm without murmurs, gallops, or rubs. RESPIRATORY: Clear to auscultation. Breath sounds equal bilaterally. No wheezes, rales, or rhonchi. GASTROINTESTINAL: Abdomen soft, non-tender, nondistended. EXTREMITIES: No edema or joint tenderness. BACK: Nontender without deformity or crepitance. No flank tenderness. NEURO: AOx3. Motor functions grossly nonfocal. SKIN: No rash or erythema of visible areas Initial Vital Signs Initial Vital Signs: Vital Signs Temperature 98.0 F 01/30/25 15:57 Pulse Rate 102 H 01/30/25 15:57 Respiratory Rate 16 01/30/25 15:57 Blood Pressure 122/75 01/30/25 15:57 Pulse Oximetry 100 01/30/25 15:57 Oxygen Delivery Method Room Air 01/30/25 15:57 Course Orders Ordered: Discontinued Medications Sodium Chloride (Normal Saline 0.9%) 1,000 mls @ 1,000 mls/hr IV BOLUS ONE Stop: 01/30/25 17:09 Last Infusion: 01/30/25 18:02 Dose: Infused Documented By: Admin: 01/30/25 16:46 Dose: 1,000 mls/hr Documented By: CAITLYN Loperamide HCl (Loperamide 2 Mg Capsule) 2 mg PO NOW ONE Stop: 01/30/25 18:51 Last Admin: 01/30/25 19:12 Dose: 2 mg Documented By: MERI Ondansetron HCl (Ondansetron 4 Mg/2 Ml Inj) 4 mg IV NOW PRN PRN Reason: Nausea And Vomiting Ondansetron HCl (Ondansetron 4 Mg Odt) 4 mg PO NOW PRN PRN Reason: Nausea And Vomiting Vital Signs Vital signs: Vital Signs - 8 hr 01/30/25 15:57 Temperature 98.0 F Pulse Rate 102 H Respiratory Rate 16 Blood Pressure 122/75 Pulse Oximetry 100 Oxygen Delivery Method Room Air Medical Decision Making Lab Data Lab results reviewed: Yes I reviewed the patient's lab results. Lab results narrative: White blood cell count 5700, hemoglobin 13.1, platelets adequate. Glucose 106. Normal renal function. Serum CO2 20 mildly decreased. Sodium 133 mildly decreased. Normal potassium. Liver functions normal. Lipase normal. Procalcitonin normal. Lactate normal. Urine dip negative. Stool studies ordered, no specimen received. 01/30/25 16:13 01/30/25 16:13 Labs: Lab Results 01/30/25 Range/Units 16:13 WBC 5.7 (4.5-11.0) X10^3/uL RBC 4.34 (4.0-5.2) X10^6/uL Hgb 13.1 (12.0-16.0) g/dL Hct 37.5 (36-46) % MCV 86.5 (80-100) fL MCH 30.3 (26-34) PG MCHC 35.0 (30-36) % RDW 14.6 (11.6-14.8) % Plt Count 296 (150-400) X10^3/uL Neut % (Auto) 76.3 H (50-75) % Lymph % (Auto) 11.1 L (25-40) % [place] % (Auto) 12.1 (3-14) % Eos % (Auto) 0.2 L (2-4) % Baso % (Auto) 0.3 (0-2) % Neut # (Auto) 4400 (5450-1042) /uL Lymph # (Auto) 600 L (4472-9297) /uL [place] # (Auto) 700 (0-900) /uL Eos # (Auto) 0 (0-450) /uL Baso # (Auto) 0 (0-100) /uL PT 12.5 (9.4-12.5) SECONDS INR 1.1 (0.9-1.3) APTT 26 (25.1-36.5) SECONDS Sodium 133 L (137-145) mmol/L Potassium 3.4 (3.4-5.1) mmol/L Chloride 98 (98-107) mmol/L Carbon Dioxide 20 L (22-32) mmol/L BUN 14 (7-17) mg/dL Creatinine 0.70 (0.52-1.04) mg/dL Estimated GFR > 60 (>60) mL/min BUN/Creatinine Ratio 20.0 (6-22) Glucose 106 H (70-99) mg/dL Lactate 1.2 (0.7-2.1) mmol/L Calcium 9.4 (8.4-10.2) mg/dL Total Bilirubin 0.8 (0.2-1.3) mg/dL AST 31 (14-36) IU/L ALT 17 (<35) IU/L Alkaline Phosphatase 86 (38-126) U/L Total Protein 7.4 (6.3-8.2) g/dL Albumin 4.0 (3.5-5.0) g/dL Globulin 3.4 (1.7-4.1) g/dL Albumin/Globulin Ratio 1.2 (1.0-2.8) Lipase 31 (23-300) U/L Procalcitonin 0.067 (<0.5) ng/mL Urine Dip Bedside Urine Glucose Negative Bedside Urine Bilirubin - Negative Bedside Urine Ketone +++ 80 Urine Specific [place] 1.005 Bedside Urine Occult Blood +/- Bedside Urine pH 5.5 Bedside Urine Protein - Negative Bedside Urine Urobilinogen - Negative Bedside Urine Nitrite - Negative Bedside Urine Leukocytes - Negative Esterase Point of care testing: Urine Dip Bedside Urine Glucose Negative Bedside Urine Bilirubin - Negative Bedside Urine Ketone +++ 80 Urine Specific [place] 1.005 Bedside Urine Occult Blood +/- Bedside Urine pH 5.5 Bedside Urine Protein - Negative Bedside Urine Urobilinogen - Negative Bedside Urine Nitrite - Negative Bedside Urine Leukocytes - Negative Esterase ECG Data Attestation: I personally reviewed and interpreted this ECG as follows: Interpretation: 1659, normal sinus rhythm with rate of 83, no obvious ST segment elevation or depression changes. SC 162, QRS 80, QTC 444. [facility] Narrative Medical decision making narrative: 79-year-old female with history of dementia having diarrhea and decreased oral intake, family concern about possible dehydration. IV fluids initiated after triage. Labs pending. Stool studies requested, no specimen has been received. Afebrile, sirs screen negative. Abdomen benign. Lab data: White blood cell count 5700, hemoglobin 13.1, platelets adequate. Glucose 106. Normal renal function. Serum CO2 20 mildly decreased. Sodium 133 mildly decreased. Normal potassium. Liver functions normal. Lipase normal. Procalcitonin normal. Lactate normal. Urine dip negative. Stool studies ordered, no specimen received. Oral fluid challenge. Oral loperamide dose. Patient feels better and would like to go home, at bedside feels comfortable with this plan. Discharged home with family. Encouraged to drink plenty of fluids. Recheck with PCP advised early this next week. Return precautions discussed. Discharge Plan Departure Patient Disposition: Home Clinical Impression: Diarrhea, Dehydration Instructions: DI for Dehydration -- Adult Activity Restrictions/Additional Instructions: History of dementia. Recent diarrhea without blood. No fever on triage. Abdominal exam benign, without tenderness. Concern for decreased oral intake as well, possible dehydration. IV fluid bolus was given. Patient feels better. And we would like to go home. Screening labs unremarkable. Stool studies were requested but no specimen was received for lab testing. Single dose of loperamide anti diarrheal medication given, to help control further diarrhea hopefully as an outpatient. Encouraged to take frequent sips of oral fluids. Consider rechecking with your regular provider early this next week if symptoms do not seem to be resolving. Return earlier to this/nearest emergency department for any change worsening symptoms or any concerns prior. Prescriptions: No Action donepezil 10 mg tablet 10 mg PO BEDTIME Qty: 90 1RF mirtazapine 15 mg tablet 15 mg PO BEDTIME Qty: 90 1RF trazodone 50 mg tablet 100 mg PO BEDTIME Qty: 90 1RF Rx Instructions: take two tablets (100mg) by mouth at bedtime acetaminophen 500 mg tablet 1,000 mg PO Q6H Rx Instructions: Take 2 tablets by mouth at bedtime, scheduled. May also take 1 tablet Q6h PRN for pain but do not exceed total of 3,000mg/day clonazepam 0.5 mg tablet 0.5 mg PO .COMPLEX Qty: 60 2RF Rx Instructions: 0.5 mg orally Take 1 tablet by mouth everyday after dinner. lidocaine 4 % adhesive patch,medicated 1 patch topical DAILY PRN Rx Instructions: Place 1 patch onto the skin every 24 hours. Apply patch to area of pain, (usually right hip) in the morning and remove patch at bedtime. tramadol 50 mg tablet 50 mg PO BEDTIME MDD 100mg PRN (Reason: pain not improved by tylenol) Qty: 60 2RF timolol maleate 0.5 % drops 1 drp EYE-BOTH QAM Referrals: Halie Cannon DO [Primary Care Provider, Medical] Stand Alone Forms: Patient Portal/API
[2025-01-30 18:30] VITALS: BP 137/71; PULSE 92; O2SAT 93
[2025-01-30 18:40] VITALS: BP 128/71; O2SAT 85
[2025-01-30 19:00] VITALS: BP 147/76; PULSE 89; O2SAT 99
[2025-01-30] MEDS: LOPERAMIDE 2 MG CAPSULE PO (19:12)
== END 2025-01-30 19:26 | disposition home or self-care (01) ==
PROVIDERS: Family Medicine; Emergency Provider Emergency Medicine; PCP Family Medicine
DX: R19.7 Diarrhea, unspecified (principal); E86.0 Dehydration
CPT/HCPCS: 36415; 71045; 74177; 80053; 81003; 83605; 83690; 84145; 85025; 85610; 85730; 87040; 93005; 93010; 96360; 99284; Q9967

== ENCOUNTER 2025-02-05 15:43 | Emergency (ER) | payer MEDICARE, OTHER, SELFPAY ==
[2025-02-05 15:58] VITALS: BP 98/65; PULSE 90; RESP 18; TEMP 36.4; O2SAT 100; BMI 20.2
--- NOTE | 2025-02-05 16:00 | EKG_ITS ---
[address] [address] Test Date: 2025-02-05 Pat Name: Tad Dao Department: Room: Gender: Female Hub Bander: AKUA : [id number] Requested By: Order Number: [id number] Reading MD: Tomás Storey MD Measurements Intervals Bly Rate: 92 P: 9 MD: 132 QRS: -18 QRSD: 76 T: 73 QT: 404 QTc: 499 Interpretive Statements Normal sinus rhythm Possible Anterior infarct , age undetermined Electronically Signed On 02-07-2025 14:43:39 PDT by Tomás Storey MD
--- NOTE | 2025-02-05 16:05 | DI.RAD.S_ITS ---
PROCEDURE: XR HIP W PEL IF DONE RT 2V INDICATIONS: pain TECHNIQUE: AP pelvis with lateral view of the right hip. COMPARISON: [facility], CT, CT PEL WO CON, 11/04/2024, 19:33. [facility], CR, XR PELVIS 1-2V, 11/04/2024, 13:08. FINDINGS: Bones: Collapse of the superior right femoral head articular surface is new when compared to the radiographs from 11/04/2024, suspicious for a subchondral fracture or osteonecrosis. There is chronic superior lateral subluxation of the right femoral head. Moderate to severe degenerative changes in the left hip. Shortening of the left femoral neck likely related to chronic compacted femoral neck fracture. Multilevel degenerative changes in the included spine. Soft tissues: The visualized bowel gas pattern is normal. No suspicious soft tissue calcifications. IMPRESSION: 1. Increased flattening of the right superior femoral head articular surface is suspicious for possible interval subchondral fracture. Findings are superimposed on chronic severe degenerative changes and chronic hip subluxation. 2. Remote prior impacted fracture of the left femoral neck. Approved by: Segun Tran M.D. on 02/05/2025 at 18:04
--- NOTE | 2025-02-05 16:22 | ED.NAVMDI ---
HPI - Nausea/Vomiting/Diarrhea General Chief complaint: Nausea/Vomiting/Diarrhea Stated complaint: lost weight, fell recently, dehydrated? Time Seen by Provider: 02/05/25 16:20 Source: family Mode of arrival: Wheelchair History of Present Illness HPI Narrative: 79-year-old woman with recent inpatient psychiatric stay for most of November for behavioral outbursts eventually diagnosed with Alzheimer's disease he is currently home with her who has multiple sclerosis. They come in today with complaints of not interested in eating or drinking, continued diarrhea, right hip pain such that she is crying at night in her sleep, decreased appetite and describes 30 lb weight loss in the last number of months. Patient states she has been taking 2 regular aspirin for her hip pain with some success. She describes the hip pain as 3/10 in the describes it as 6- 7/10. notes that as long as she does take Imodium her diarrhea improves but returns if she stops. He continues to be concerned about her lack appetite and weight loss. Patient was seen in this ER for the same complaints on January 30. Related Data Home Medications ?Medication ?Instructions ?Recorded ?Confirmed timolol maleate 0.5 % eye drops 1 drp EYE-BOTH QAM 11/04/24 01/13/25 acetaminophen 500 mg tablet 1,000 mg PO Q6H pain 01/13/25 01/13/25 lidocaine 4 % topical patch 1 patch topical DAILY PRN 01/13/25 01/13/25 Previous Rx's ?Medication ?Instructions ?Recorded donepezil 10 mg tablet 10 mg PO BEDTIME memory #90 tabs 12/10/24 mirtazapine 15 mg tablet 15 mg PO BEDTIME depression, 12/10/24 weight loss, sleep #90 tabs trazodone 50 mg tablet 100 mg (2 x 50 mg) PO BEDTIME 12/10/24 depression, sleep #90 tabs clonazepam 0.5 mg tablet 0.5 mg PO .COMPLEX agitation #60 01/13/25 tabs tramadol 50 mg tablet 50 mg PO BEDTIME PRN pain not 01/13/25 improved by tylenol #60 tabs Allergies Allergy/AdvReac Type Severity Reaction Status Date / Time No Known Drug Allergies Allergy Verified 01/29/25 00:16 Review of Systems Review of Systems Narrative: Pertinent positive and negative findings as per HPI Patient History Medical History (Updated 02/05/25 @ 23:57 by Silvia Medina MD) Dyslipidemia Dermatitis of face Skin tags, multiple acquired Glaucoma (~1994) LLQ abdominal tenderness Skin cancer (~2004) Osteoarthritis (~1999) Anxiety (~2011) Osteopenia (~2016) Measles Chicken pox Hypertension (~1999) Surgical History Anesthesia History of eyelid surgery (~1999) History of tonsillectomy (~1954) Social History alcohol intake: former (Quit 2020) substance use type: does not use Exam Initial Vital Signs Initial Vital Signs: Vital Signs Temperature 97.6 F 02/05/25 15:58 Pulse Rate 90 02/05/25 15:58 Respiratory Rate 18 02/05/25 15:58 Blood Pressure 98/65 02/05/25 15:58 Pulse Oximetry 100 02/05/25 15:58 Oxygen Delivery Method Room Air 02/05/25 15:58 General: Chronically ill-appearing, frail, no acute distress HEENT: Moist mucous membranes, normal sclera with reactive pupils, Respiratory: Lungs are clear to auscultation, no wheezing no rales no rhonchi. Full and symmetrical air movement Cardiac: Regular rate and rhythm no murmurs no bruits Abdomen: Soft, nontender, no rebound or guarding, no flank pain Skin: Warm and dry, no rashes Neurologic: Grossly neurologically intact with no obvious asymmetries or abnormalities Extremities: No trauma, no lower extremity edema Psych: Not oriented time and place Course Orders Ordered: ED Orders 02/05/25 16:05 XR hip w pel RT 2V Stat Vital Signs Vital signs: Vital Signs - 8 hr 02/05/25 15:58 Temperature 97.6 F Pulse Rate 90 Respiratory Rate 18 Blood Pressure 98/65 Pulse Oximetry 100 Oxygen Delivery Method Room Air MDM - Nausea/Vomiting/Diarrhea MDM Narrative Medical decision making narrative: 79-year-old woman with a history of Alzheimer's dementia presents with her with concerns for increasing weight loss, decreased appetite, patient was seen for same 6 days ago CBC is unremarkable Chemistries are notable only for slightly low potassium Patient was complaining of hip pain so x-ray was done collapse of the superior right femoral head articular surface is new when compared to the radiographs from 11/04/2024, suspicious for a subchondral fracture or osteonecrosis. There is chronic superior lateral subluxation of the right femoral head. Moderate to severe degenerative changes in the left hip. Shortening of the left femoral neck likely related to chronic compacted femoral neck fracture. Multilevel degenerative changes in the included spine. CT scan of the abdomen was done on January 30 with no obvious intra-abdominal or pelvic abnormalities to explain her weight loss or loss of appetite Has been reported to the nurse that he did not want to wait for reports and results, notes that his 's Alzheimer's gets worse at night and requested results of labs and x-rays. He is instructed to follow up on MyChart. He and the patient left prior to summary review and discussion Discharge Plan Departure Patient Disposition: Home Clinical Impression: Left against medical advice, Acute pain of right hip Alzheimer dementia with agitation Qualifiers: Alzheimer's disease onset: unspecified onset Dementia severity: moderate Qualified Code(s): G30.9 - Alzheimer's disease, unspecified Prescriptions: No Action donepezil 10 mg tablet 10 mg PO BEDTIME Qty: 90 1RF mirtazapine 15 mg tablet 15 mg PO BEDTIME Qty: 90 1RF trazodone 50 mg tablet 100 mg PO BEDTIME Qty: 90 1RF Rx Instructions: take two tablets (100mg) by mouth at bedtime acetaminophen 500 mg tablet 1,000 mg PO Q6H Rx Instructions: Take 2 tablets by mouth at bedtime, scheduled. May also take 1 tablet Q6h PRN for pain but do not exceed total of 3,000mg/day clonazepam 0.5 mg tablet 0.5 mg PO .COMPLEX Qty: 60 2RF Rx Instructions: 0.5 mg orally Take 1 tablet by mouth everyday after dinner. lidocaine 4 % adhesive patch,medicated 1 patch topical DAILY PRN Rx Instructions: Place 1 patch onto the skin every 24 hours. Apply patch to area of pain, (usually right hip) in the morning and remove patch at bedtime. tramadol 50 mg tablet 50 mg PO BEDTIME MDD 100mg PRN (Reason: pain not improved by tylenol) Qty: 60 2RF timolol maleate 0.5 % drops 1 drp EYE-BOTH QAM Referrals: Halie Cannon DO [Primary Care Provider, Medical] Stand Alone Forms: Patient Portal/API, Against Med. Advice (Malagasy)
[2025-02-05 17:04] LABS: Add Manual Diff / Slide Review NO; Hematocrit 39.3 % (36-46); Hemoglobin 13.5 g/dL (12.0-16.0); Lymphocytes Absolute Auto 1300 /uL (1100-4500); Mean Corpuscular HGB Conc 34.2 % (30-36); Mean Corpuscular Hemoglobin 29.5 PG (26-34); Mean Corpuscular Volume 86.3 fL (80-100); Platelet Count 272 X10^3/uL (150-400)
[2025-02-05 17:16] LABS: Alanine Aminotransferase 20 IU/L (<35); Albumin 4.0 g/dL (3.5-5.0); Albumin Globulin Ratio 1.2 (1.0-2.8); Alkaline Phosphatase 84 U/L (38-126); Blood Urea Nitrogen 10 mg/dL (7-17); Calcium 9.3 mg/dL (8.4-10.2); Carbon Dioxide 21 mmol/L (22-32); Chloride 102 mmol/L (98-107); Estimated Glomerular Filt Rate > 60 mL/min (>60); Globulin 3.3 g/dL (1.7-4.1); Glucose 85 mg/dL (70-99); HEMOLYSIS 18 (0-50); Potassium 3.1 mmol/L (3.4-5.1); Sodium 138 mmol/L (137-145); Total Protein 7.3 g/dL (6.3-8.2)
== END 2025-02-05 19:03 | disposition home or self-care (01) ==
PROVIDERS: Emergency Provider Emergency Medicine; PCP Family Medicine
DX: M25.551 Pain in right hip (principal); G30.9 Alzheimer's disease, unspecified; Z79.82 Long term (current) use of aspirin
CPT/HCPCS: 36415; 73502; 80053; 85025; 93005; 99281; 99284